=== PATIENT | male | born 1990 | race Caucasian/White ===

== ENCOUNTER 2023-01-20 08:28 | Outpatient (OUT) | payer BC, SELFPAY ==
[2023-01-20 08:50] LABS: Basophils Absolute Auto 0.1 10^3/uL (0.0-0.1); Basophils Percent Auto 0.8 % (0.2-2.0); Eosinophils Absolute Auto 0.3 10^3/uL (0.0-0.7); Eosinophils Percent Auto 3.1 % (0.9-7.0); Hematocrit 44.4 % (42.0-54.0); Hemoglobin 14.9 g/dL (14.0-18.0); Immature Granulocytes Abs Auto 0.06 10^3/uL (0.00-0.03); Immature Granulocytes Pct Auto 0.8 % (0.0-0.5); Lymphocytes Absolute Auto 2.3 10^3/uL (1.2-3.8); Lymphocytes Percent Auto 29.2 % (20.5-60.0); Mean Corpuscular HGB Conc 33.6 g/dL (29.9-35.2); Mean Corpuscular Hemoglobin 28.7 pg (25.9-34.0); Mean Corpuscular Volume 85.4 fL (80.0-94.0); Mean Platelet Volume 9.1 fL (9.5-13.5); Monocytes Absolute Auto 0.7 10^3/uL (0.3-0.8); Monocytes Percent Auto 8.2 % (1.7-12.0); Neutrophils Absolute Auto 4.6 10^3/uL (1.4-6.5); Neutrophils Percent Auto 57.9 % (43.0-75.0); Platelet Count 215 10^3/uL (150-450); Red Cell Distribution Width 12.7 % (11.0-15.0)
[2023-01-20 10:09] LABS: Alanine Aminotransferase 30 U/L (16-63); Albumin Globulin Ratio 0.9; Albumin Level 3.8 g/dL (3.4-5.0); Alkaline Phosphatase 84 U/L (46-116); Anion Gap 11.1; Aspartate Amino Transferase 20 U/L (15-37); Bilirubin Total 0.3 mg/dL (0.2-1.0); Calcium 9.2 mg/dL (8.5-10.1); Carbon Dioxide 29.1 mmol/L (21.0-32.0); Chloride 104 mmol/L (98-107); Chol HDL Ratio 4.6; Cholesterol 171 mg/dL (<=200); Estimated GFR (African America >60 (>=60); Estimated GFR (Non-African Ame >60 (>=60); Globulin 4.1 g/dL; Glucose 97 mg/dL (74-106); HDL Cholesterol 37 mg/dL (40-60); Potassium 4.2 mmol/L (3.5-5.1); Sodium 140 mmol/L (136-145); Thyroid Stimulating Hormone 2.621 uIU/mL (0.358-3.740); Total Protein 7.9 g/dL (6.4-8.2); Triglycerides 147 mg/dL (<=150); VLDL CHOLESTEROL 29.4 mg/dL
== END 2023-01-20 08:29 | disposition home or self-care (01) ==
LOC: LAB 08:34
PROVIDERS: PCP Family Medicine; Visit Provider Family Medicine
DX: Z00.00 Encounter for general adult medical examination without abnormal findings (principal)
CPT/HCPCS: 36415; 80053; 80061; 84443; 85025

== ENCOUNTER 2023-12-08 13:56 | Outpatient (OUT) | payer BC, SELFPAY ==
[2023-12-08 14:42] LABS: Chloride 104 mmol/L (98-107); Sodium 140 mmol/L (136-145)
[2023-12-08 14:43] LABS: Anion Gap 11.5; BUN Creatinine Ratio 11.7; Calcium 9.3 mg/dL (8.5-10.1); Carbon Dioxide 28.5 mmol/L (21.0-32.0); Estimated GFR (African America >60 (>=60); Estimated GFR (Non-African Ame >60 (>=60); Glucose 92 mg/dL (74-106); TSH W/ REFLEX FT4 2.107 uIU/mL (0.358-3.740)
== END 2023-12-08 13:57 | disposition home or self-care (01) ==
LOC: LAB 13:58
PROVIDERS: PCP Family Medicine; Visit Provider Family Medicine
DX: Z00.00 Encounter for general adult medical examination without abnormal findings (principal); N64.3 Galactorrhea not associated with childbirth
CPT/HCPCS: 36415; 80048; 84146; 84443

== ENCOUNTER 2024-01-19 11:08 | Outpatient (OUT) | payer BC, SELFPAY ==
--- OUTSIDE RECORDS SUMMARY | 2024-01-19 11:13 | XMS_ITS | CCD ---
Author Organization [facility] Care Team Providers Care Proofreader Name Role Phone DR CATARINA DOCTOR Admitting Unavailable DR VINAYAK ELMORE Attending Unavailable SADAF NATH Primary Care Physician [phone] MD Sadaf Nath Primary Care Provider MD Mart Man Attending Provider Sadaf Nath Unavailable Allergies Allergy Classification Reported Allergen(s) Allergy Type Date of Onset Reaction(s) Facility (15 sources) Amoxicillin; Translations: [amoxicillin] Drug Allergy [facility] (3 sources) Penicillins; Translations: [penicillins] Drug allergy [facility] (12 sources) tree nut, unspecified Drug allergy Anaphylaxis, Unknown [facility] (12 sources) Penicillin Drug Allergy hives [employer] Other (9 sources) Pseudoephedrine Drug Allergy Unknown [facility] [employer] Other (9 sources) Morphine Sulfate-NaCl Drug allergy Comment:Throat Swelling [facility] [employer] Other Medications Current Medications Medication Drug Class(es) Dates Sig (Normalized) Sig (Original) acetaminophen 325 mg / oxyCODONE hydrochloride 5 mg oral tablet (3 sources) Opioid Agonist Start: 12-05-2020 Percocet 5 mg-325 mg oral tablet 1 tab(s), Oral, q6hr as needed for pain, 18 tab(s), Refill(s) 0 Start Date: 12/05/20 Status: Ordered cephalexin 500 mg oral capsule (2 sources) Cephalosporin Antibacterial Start: 10-31-2021 End: 11-05-2021 take 1 capsule by mouth twice daily at mealtime Keflex 500 mg Cap 500 mg = 1 cap(s), Oral, BID, Start with first meal after procedure, X 5 day(s), # 10 cap(s), Refills(s) 0, [id number] 190, cm, 10/31/21 10:54:00 EDT, Height/Length Dosing, 148, kg, 10/31/21 10:54:00 EDT, Weight Dosing Start Date: 10/31/21 Stop Date: 11/05/21 Status: Ordered docusate sodium 100 mg oral capsule (3 sources) Start: 12-10-2020 take 1 capsule by mouth twice daily Colace 100 mg Cap 100 mg = 1 cap(s), Oral, BID, # 60 cap(s), Refills(s) 0, [id number], 183, cm, 12/10/20 7:06:00 EDT, Height/Length Dosing, 143.1, kg, 12/10/20 7:06:00 EDT, Weight Dosing Start Date: 12/10/20 Status: Ordered lisdexamfetamine dimesylate 50 mg oral capsule (11 sources) Central Nervous System Stimulant Start: 08-24-2023 take 1 capsule by mouth every twenty-four hours Vyvanse 50 MG 1 capsule in the morning Orally Once a day for 30 days Jul, Active Start: 07-23-2023 take 1 capsule by [facility] every twenty-four hours Vyvanse 50 MG 1 capsule in the morning Orally Once a day for 30 days Jun, Active Start: 05-29-2023 take 1 capsule by [facility] every twenty-four hours Vyvanse 50 MG 1 capsule in the morning Orally Once a day for 30 days May, Active Start: 05-21-2023 take 1 capsule by [facility] every twenty-four hours Vyvanse 50 MG 1 capsule in the morning Orally Once a day for 30 days Apr, Active Start: 04-27-2023 take 1 capsule by [facility] every twenty-four hours Vyvanse 50 MG 1 capsule in the morning Orally Once a day for 30 days Apr, Active Start: 03-04-2023 take 1 capsule by mo [facility] every twenty-four hours Vyvanse 50 MG 1 capsule in the morning Orally Once a day for 30 days Feb, Active Start: 02-03-2023 take 1 capsule by mo [facility] every twenty-four hours Vyvanse 30 MG 1 capsule in the morning Orally Once a day for 30 days Jan, Active methylPREDNISolone 4 mg oral tablet (1 source) Corticosteroid Start: 01-19-2023 methylPREDNISolone 4 MG as directed Orally for 6 days Dec, Active naproxen 500 mg oral tablet (3 sources) Nonsteroidal Anti-inflammatory Drug Start: 12-05-2020 take 1 tablet by mouth twice daily Naprosyn 500 mg Tab 500 mg = 1 tab(s), Oral, BID, # 20 tab(s), Refills(s) 0 Start Date: 12/05/20 Status: Ordered Osteo Bi-Flex Adv Joint Shield (12 sources) Osteo Bi-Flex Ad v Joint Shield Active Zofran ODT 8 mg Tab-Dis (3 sources) Start: 12-10-2020 take 1 tablet by mouth every six hours Zofran ODT 8 mg Tab-Dis 8 mg = 1 tab(s), Oral, q6hr, # 20 tab(s), Refills(s) 0, Pharmacy: [facility]/pharm[facility] #[id number], 183, cm, 12/10/20 7:06:00 EDT, Height/Length Dosing, 143.1, kg, 12/10/20 7:06:00 EDT, Weight Dosing Start Date: 12/10/20 Status: Ordered Problems Active Problems Problem Classification Problem Date Documented Date Episodic/Chronic Allergic reactions (14 sources) Allergy to tree nut; Translations: [Allergy to other foods] Episodic Attention-deficit, conduct, and disruptive behavior disorders (11 sources) Adult attention deficit hyperactivity disorder ; Translations: [Attention-deficit hyperactivity disorder, unspecified type] Chronic Attention-deficit, conduct, and disruptive behavior disorders (9 sources) Attention-deficit hyperactivity disorder, unspecified type Chronic Contraceptive and procreative management (6 sources) Sterilization requested; Translations: [Encounter for sterilization] Onset: 10-31-2021 Episodic Fracture of lower limb (3 sources) Fracture of ankle 12-07-2020 Episodic Other nutritional; endocrine; and metabolic disorders (8 sources) Body mass index 40+ - severely obese; Translations: [Body mass index (BMI) 40.0-44.9, adult] Chronic Other nutritional; endocrine; and metabolic disorders (1 source) Body mass index (BMI) 40.0-44.9, adult; Translations: [Body mass index (BMI) 40.0-44.9, adult] Chronic Unclassified (3 sources) Patient encounter status 10-10-2021 Past or Other Problems Problem Classification Problem Date Documented Date Episodic/Chronic Residual codes; unclassified (4 sources) Other specified postprocedural states; Translations: [OTH SPECIFIED POSTPROCEDURAL STATES] Onset: 02-05-2021 Episodic Results Test Name Value Interpretation Reference Range Facil ity Lab Reportson 02-03-2022 Lab Reports [id number] Normal [facility] Semen Analysis, Post Vasecto myon 01-25-2022 Semen Analysis, Post Vasectomy Few Nonmotile Sperm Normal None Seen [facility] Comment on above: Performed By: #### S EMPOST #### [address] Result Comment: PERF ORMED BY: [place] [address] PATHOLOGIST CORK INSULATOR TOO SLOAN M.D. Semen analysis post vasectom y panelOrdered By: Mart Man on 01-25-2022 Semen analysis p vasectomy panel (Merari) Few nonmotile sperm None Seen [facility] Ambulatory Visit Summaryon 0 11-18-2021 Ambulatory Visit Summary MELLO ARCHER SOREN :1990 Visit Date:11/18/2021 Ambulatory Visit Instructions Your Diagnosis Status post vasectomy Encounter for postvasectomy sperm count Your Care Team Attending Physician - JULIAN PIERRE, Mart Mcbride Primary Care Physician - SADAF NATH MD This Is Your Medications List Contact prescribing physician if questions or concerns acetaminophen-oxycodon e (Percocet 5 mg-325 mg oral tablet) docusate (Colace 100 mg Cap) naproxen (Naprosyn 500 mg Tab) ondansetron (Zofran ODT 8 mg Tab-Dis) Procedures Performed Vasectomy (10/31/2021), ORIF - Open reduction of fracture of ankle with internal fixation (12/10/2020), Tonsillectomy. Discharge Vitals Height 190 cm Height 190.0 cm Weight 148 kg Weight 148.0 kg BMI 41 What to do next You Need to Schedule the Following Appointments Follow Up with JULIAN PIERRE, RADHA Mckeon When: Only if needed Where: [address] [place], [place] [id number]- Medications What How Much When Why Instructions Unchanged acetaminophen-oxycodon e (Percocet 5 mg-325 mg oral tablet) 1 Tablets By Mouth Every 6 hours as needed for as needed for pain Bimalleolar fracture of right ankle Contact prescribing physician if questions or concerns Unchanged docusate (Colace 100 mg Cap) 1 Capsules By Mouth 2 times a day Contact prescribing physician if questions or concerns Unchanged naproxen (Naprosyn 500 mg Tab) 1 Tablets By Mouth 2 times a day Contact prescribing physician if questions or concerns Unchanged ondansetron (Zofran ODT 8 mg Tab-Dis) 1 Tablets By Mouth Every 6 hours Contact prescribing physician if questions or concerns Allergies Tree Nuts (Anaphylaxis) amoxicillin (Hives) penicillins (Hives) Problems Ongoing - Any problem that you are currently receiving treatment for. Encounter for vasectomy Status post vasectomy Vasectomy evaluation Education Materials Preventing HIV Infection and AIDS HIV (human immunodeficiency virus) infection is a long-term (chronic) viral infection. HIV kills white blood cells that help to control the body's defense (immune) system and fight infection. HIV spreads through semen, blood, breast milk, rectal fluid, and vaginal fluid. HIV is commonly spread through sexual contact and sharing needles or syringes, because these behaviors involve exchanging bodily fluids. Without treatment, HIV can turn into AIDS (acquired immunodeficiency syndrome), which is an advanced stage of HIV infection. AIDS is a very serious illness and can be life-threatening. What changes can I make to protect myself from HIV infection? Sexual contact To protect yourself from HIV through sexual contact: ? Use devices that prevent body fluids from passing between partners (barrier protection) every time you have sex. Barrier protection can be used during oral, vaginal, or anal sex. Commonly used barrier methods include: ? Male condom. ? Female condom. ? Dental dam. ? If you are at risk, ask your health care provider about taking medicine that can prevent HIV infection (pre-exposure prophylaxis, PrEP). ? Get tested for HIV and know the HIV status of your sexual partner(s). Avoid having sex with partners without a known HIV status. If you or your partner is HIV-positive, use protection during sex. ? Practice monogamy. This means you have only one sexual partner in your lifetime or only one partner at a time (serial monogamy). ? Get tested and treated for STIs (sexually transmitted infections). Having an STI increases your risk for getting HIV. The only way to completely prevent HIV from being spread through sexual contact is not to have any kind of sex (abstinence), including oral, vaginal, or anal sex. Drug use To protect yourself from HIV through drug use: ? Do not use drugs, especially drugs that are injected. ? Avoid having sex while under the influence of alcohol and drugs. Alcohol and drugs can affect your ability to make good decisions and may lead you to engage in high risk behaviors. ? Do not share needles or syringes with anyone else. If you do share needles or syringes, consider taking PrEP to prevent HIV infection. Blood and bodily fluid To protect yourself from HIV through exposure to blood and bodily fluids from a person who has HIV: ? Cover any sores or wounds on yourself or the person with HIV. ? If you need to touch blood or bodily fluids from an infected person, use gloves and wash your hands afterward. ? Do not share items that touch bodily fluids or blood, such as toothbrushes or razors. What can happen if I do not make these changes? If you do not make these changes: ? You put yourself at risk of getting HIV from an infected person. HIV is a serious, life-threatening illness that cannot be cured. Having HIV makes it easier to get sick and more difficult to get well. ? You can pass HIV on to others even if you don't know that you have it. An infecte (more content not included)... Normal [facility] Patient Educationon 11-18- 22 Patient Education Infectious Disease Preventing HIV Infection and AIDS HIV (human immunodeficiency virus) infection is a long-term (chronic) viral infection. HIV kills white blood cells that help to control the body's defense (immune) system and fight infection. HIV spreads through semen, blood, breast milk, rectal fluid, and vaginal fluid. HIV is commonly spread through sexual contact and sharing needles or syringes, because these behaviors involve exchanging bodily fluids. Without treatment, HIV can turn into AIDS (acquired immunodeficiency syndrome), which is an advanced stage of HIV infection. AIDS is a very serious illness and can be life-threatening. What changes can I make to protect myself from HIV infection? Sexual contact To protect yourself from HIV through sexual contact: ? Use devices that prevent body fluids from passing between partners (barrier protection) every time you have sex. Barrier protection can be used during oral, vaginal, or anal sex. Commonly used barrier methods include: ? Male condom. ? Female condom. ? Dental dam. ? If you are at risk, ask your health care provider about taking medicine that can prevent HIV infection (pre-exposure prophylaxis, PrEP). ? Get tested for HIV and know the HIV status of your sexual partner(s). Avoid having sex with partners without a known HIV status. If you or your partner is HIV-positive, use protection during sex. ? Practice monogamy. This means you have only one sexual partner in your lifetime or only one partner at a time (serial monogamy). ? Get tested and treated for STIs (sexually transmitted infections). Having an STI increases your risk for getting HIV. The only way to completely prevent HIV from being spread through sexual contact is not to have any kind of sex (abstinence), including oral, vaginal, or anal sex. Drug use To protect yourself from HIV through drug use: ? Do not use drugs, especially drugs that are injected. ? Avoid having sex while under the influence of alcohol and drugs. Alcohol and drugs can affect your ability to make good decisions and may lead you to engage in high risk behaviors. ? Do not share needles or syringes with anyone else. If you do share needles or syringes, consider taking PrEP to prevent HIV infection. Blood and bodily fluid To protect yourself from HIV through exposure to blood and bodily fluids from a person who has HIV: ? Cover any sores or wounds on yourself or the person with HIV. ? If you need to touch blood or bodily fluids from an infected person, use gloves and wash your hands afterward. ? Do not share items that touch bodily fluids or blood, such as toothbrushes or razors. What can happen if I do not make these changes? If you do not make these changes: ? You put yourself at risk of getting HIV from an infected person. HIV is a serious, life-threatening illness that cannot be cured. Having HIV makes it easier to get sick and more difficult to get well. ? You can pass HIV on to others even if you don't know that you have it. An infected mother can also pass it to her children through , childbirth, or . ? You expose yourself to complications from the virus. Without treatment, the virus progresses. As it multiplies in your body, it causes the immune system to stop protecting you from infections and other health problems. You may get infections that you would not normally get if your immune system was healthy and working properly (opportunistic diseases). ? You put yourself at risk of side effects from HIV medicines. HIV medicines (antiretroviral therapy, ART) can help slow the virus from progressing and prevent its spread to others. People with HIV must take these medicines on a daily basis in order to live long, healthy lives. However, these medicines have side effects. Long-term use of ART medicines can lead to chronic health conditions, such as damage to the liver and kidneys, diabetes, and heart disease. People who take HIV medicines must use protection during sex because they can still pass the virus on to sexual partners. ? You could also put yourself at high risk for getting other sexually transmitted infections. ? You put yourself at risk of having an unintended . Where to find support To get support preventing HIV infection and AIDS: ? Talk with your health care provider. ? Visit your local health department or clinic. ? Consider joining a support group. Where to find more information Learn more about HIV and AIDS from: ? U.S. Department of Health and Human Services: www.aids.gov ? Centers for Disease Control and Prevention: ? More information about preventing HIV: www.cdc.gov/hiv/basics /prevention.html ? How to find a location where you can get sexual health materials and treatment for free or for a low cost: gettested.cdc.gov Summary ? HIV spreads through semen, blood, breast milk, rectal fluid, and vaginal fluid. ? HIV is commonly spread through sexual contact and sharing needles or (more content not included)... [facility] Urology Office/Clinic Noteon 11-18-2021 Urology Office/Clinic Note Chief Complaint PO Vasectomy HPI Staff This is a 30 year old male PO Vasectomy done 10/31/21. Pain with urination:No Blood in urine:No Incomplete bladder emptying:No Frequency:No Urgency:No Nocturia:No Hesitancy:No Urination requires straining:No Stream:No Stream starts and stops:No Post-void dribbling:No Leaking before getting to the restroom:_ Urinary incontinence without sensory awareness:_ Temporarily unable to restrain urination with body movement:_ Male genital symptoms penile:No Male genital symptoms testicular:No Male genital symptoms scrotal:No Blood in semen No History of Present Illness I have reviewed and verified the staff HPI to be accurate for this encounter. Review of Systems ROS - Provider Constitutional: denies weight loss, denies hot flashes. Eyes: denies eye problems. Gastrointestinal: denies nausea, denies vomiting. Cardiovascular: denies chest pain or angina. Integumentary: no dryness Musculoskeletal: denies musculoskeletal symptoms. ENMT: denies otolaryngeal symptoms. Respiratory: no shortness of breath. Heme/Lymph: denies easy bleeding tendency, denies easy bruising tendency. Psychiatric: no confusion, no anxiety. Genitourinary: denies dysuria, denies hematuria, denies discharge, denies urinary frequency, denies urinary hesitancy, denies nocturia, denies incontinence, denies genital sores, denies decreased libido, and denies erectile dysfunction. Physical Exam Vitals & Measurements HT: 190 cm HT: 190.0 cm WT: 148 kg WT: 148.0 kg BMI: 41 General Appearance: alert, no distress, well nourished, well developed male. Genitourinary: normal scrotum, normal testes, normal urethra, normal epididymis, normal vas deferens/spermatic cord. Flank Pain: none. Bladder: nonpalpable. Assessment/Plan 1. Status post vasectomy (Z98.52: Vasectomy status) PO Vasectomy done 10/31/21. He is aware that he is not sterile until he has a negative semen analysis which will be checked after about two months and after 20-30 ejaculations. He should deliver the semen specimen to the lab within 30 min. of ejaculation and he will call one week later to get the results. 2. Encounter for postvasectomy sperm count (Z30.8: Encounter for other contraceptive management) Explained to pt how to take and drop off a semen sample. Pt is not sterile til he gets a negative semen sample. Patient is postop vasectomy 2 weeks ago. And no problems or complications I took all sutures out bilaterally. Superficial pus like area in one of the sutures I told the dab with peroxide 3 times a day. Patient's not sterile I said for 2 months I will get a single sperm count it should be 0 all precautions will be taken until I get the 0 sperm count and the patient understands this. Follow-up With When Contact Information JULIAN PIERRE, Mart Mcbride, URL Only if needed [address] [place] [phone]- Additional Instructions: Patient Education Preventing HIV Infection and AIDS Ramo Gomez personally scribed for Dr. Man on 11/18/2021 10:31:56. . Documentation recorded by the scribeRamo, accurately reflects the services(s) I performed and decisions made by me. Authenticated by Dr. Man on 11/18/2021 10:46:59. Problem List/Past Medical History Ongoing Encounter for vasectomy Status post vasectomy Vasectomy evaluation Historical No qualifying data Procedure/Surgical History Vasectomy (10/31/2021), ORIF - Open reduction of fracture of ankle with internal fixation (12/10/2020), Tonsillectomy. Medications Colace 100 mg Cap, 100 mg= 1 cap(s), Oral, BID, Not taking Naprosyn 500 mg Tab, 500 mg= 1 tab(s), Oral, BID, Not taking Percocet 5 mg-325 mg oral tablet, 1 tab(s), Oral, q6hr, PRN, Not taking Zofran ODT 8 mg Tab-Dis, 8 mg= 1 tab(s), Oral, q6hr, Not taking Allergies Tree Nuts (Anaphylaxis) amoxicillin (Hives) penicillins (Hives) Social History Alcohol - Denies Alcohol Use, 12/07/2020 Substance Abuse - Denies Substance Abuse, 12/07/2020 Tobacco - Denies Tobacco Use, 12/07/2020 Family History Family history is unknown Immunizations Vaccine Date Status SARS-CoV-2 (COVID-19) Ad26 vaccine 11/25/2020 Recorded Diagnostic Results Tests Reviewed: Reviewed [facility]A. [facility] Comment on above: Result Comment: Elec tronically Signed By: Mart MAN MD\.br\Date and Time Signed: 11/18/21 10:47 EDT\.br\Electronically Co-Signed By: Ramo Yap\.br\Date and Time Co-Signed: 11/18/21 10:33 EDT Coding Summary.on 11-07-2021 Coding Summary. [id number] Gh 0bWw+PGhlYWQ+LI5DVHEaT 09jsDRbbU0BH4lETD1ENVS VFXBXBH8LYQ4ylKL3OEfgB 2VybiAv QenjnYJnTB80CYy0FSY6mY vyVAojjQ0fgRXhN2f7ZaZv IA87vB18NIxvCCOeCvC7Nw ZpbjsgbWFy O3knYzNmuXBgZmg+PHRhYm xlIHdpZHRoPScxMDAlJyBz lZolAU3xKn6oZMIwTKItoF xhcHNlOiBj m8rwPMLhFUhfAU3doWuhR2 DnjPM9BRIue1l6Ah26uOR+ QUJdJJC4mNjqJTqqi140Sf Evf1pbEQU4 mQZxDUojKLL0I97yu3X9YJ WaNHNqZNC8dBH2iD9zhBwn xrcxN2NfxDIrOmT6VBA1oL PjsC2mhXeb tfibzW4yNkx+C93EUX5FSE SBSQ3ZRzm4J3LbHbazvFM+ GD83WWPcQX31zMJnwZAgs8 sakLb6GuCx TJCmGKQ5cVheHBbxz2ZnJF GmW75yrGZdy3O0BCYnzMjc rDFeMeTvdPQ8qD9wOWakzb hxe3trfezm Ffygb6zymw95dA99O74rDI lzLXCyMZM5QAZyRPHerAjv ut7ksG6nJl1+XUxiw5vdp2 gjuHe7FzDu QOHricZnwXrmUIJ7p3ZlUq 17P2SpoIheb5JoLkq8ey25 oHLax1H5jTJ6PEbtRBWbbJ 1eSNcaTiH9 UNZnNiXzvH39aYOsWQwmHm 2qxHxwqBbpAM1nCHHqnmlo LHEmnJ1qRKAwwIWrcUnmNG 4wNTBpbjtm x114KoFtJUW8ZWLsdISsI5 QtkF3uGiDrMVEcEENvY2Tq nAMrZQlaR999KHzjEfN1MH McscLsU0Si IMRogPttEgW4m2D8Iw0Wr7 DndofrBJR9VUfsLHT6JaJ7 NhMxYqN3G9NxJwx3TTUkoB zrZN8jS7Qm AQUwugahjbjfzAQ8HZZgWO GvbH23xCVnSIazZk9ji8B9 q274HUNzLDEflG07Yf6hwP ogMTBwdCBU bC0mfteto5rjwcxiUcKbVV AsKQw5WAq7HKZhcJviUdXk YBH8PpV2VPH4wHJbsQ2mjT imnanagL4i Oyc+J83rfO6dCIB6ENN3cs uiUUDvetRjQT99PD30O9Fv PjwvdGFibGU+PGRpdiBzdH hxNC0oAaIz x6ouk2TvVIghO9IkYVKbCW yqNld1CLRkYGJ7bCT7dQ0f GBYyNAyxu7R1kMY8P5Ilrk Lujs4nf6vu GVKoRQkrP44qoSQbt7T9JY OlkBH3NIIkoIqmBqRrxV94 Oyc+CEKncTdtx4BqZhrjx3 jve5upwIg3 NnGbNDRdciBohLtoHRB8y2 XbAt81U89uQClrQZJcMBDb TPCiKAWlnMzudk9dwM8tYg 8+PGNvbCB3 cXJ1sG3vFLZwLoN5OObqZ5 33ExJqbOWhXmdaq7zpd5yx zJv2IoKgRKAdmnCumTvrFT N3q5NqQe62 U41sGHwzHZMzMDUhGJXsTS OkfJbvtx5diF2qKt2+PC9j s7xmpc55yA98fOB+PHRkIH F7bRudKWnd CDIhjH9qXUfjUvC7MPJzLm IabX51aGScHZauQw2kzAwv nByjTN2mIWGtnslgv246Rv Gwr0byIWGa fVInQDwkJET1Y68lb2E4MO LwLGQmDST5sEB0yX3nsChy bjogbGVmdDsgdmVydGljYW hxLQodN796 IHRvcDsnPlBhdGllbnQgTm PaYIu9B0PySvb0DVKqaSgd DT6jvDJlOKhpRw5gbWjxeE xlMY2nUPTi tklnn336OzInt3gzDCRdvX ZrEFtkHRE4V10qq6N0HELu QFHjPOQ3pJP9aE5xpHqumc ogbGVmdDsg mtGbyDawNNkkQZkmU566CZ RvcDsnPkJpcnRoIERhdGU6 WR27MM20rJUyl6I2mRJ9Z8 BhZGRpbmct zvgenDT2WXVpOOJqpA76Am 0gfYtuZj5vVGWvYKL8HOIe vZAzQ8OweN8iJhAdVVExAU FcD2PdhHCt OUfiF308EOnlUpE8SXGxiz LeY0FhKASzjHprTpG6i5G2 Py5LT4D8NQ50KQ09mQYah3 K8jSM6E0Nv EVZeaeznbzyhwXP7OJGySK OzmD72Tg8olVjjLw6bFJIv RYC5GSBpoVJbR7TqcW0yBp AjMDAwMDAw D3BjxQRySDwaW581NWtmXd U4FZWtweLwW5WmRHEfsLxg EiE9x6X8Vi6TPHw3FU75GB 84mWTmo5Q9 uPY0O3QrHRWmpsdadlgktR A8AGJwIFKnlH04Oh7lsAob Uy3hILTaOXN5ENTdhXKzO2 JvoM0nMdQo BLJkSBIpH0WrwJRnXSniT6 65BWztTrO5TFRqesByL6My WSWxdNqvYlI7e4H7Df0VKP GtPQ20VVW4 dUJ2OQ83LX62T7NgXbdkiU FibGU+PHRhYmxlIHdpZHRo HNnhKOFkJxHkbUehIM1jBh 9yZGVyLWNv rUllaZYwQgFji6uuKTCgSE ygKA1anFnjG3TviCN6BIOo s3k3No02H40mQ1LkcIZ+PG KxmUP8zEC6 pP3qDyJpNxD7CDesN226Bu DptNYmHfpib3zih6brnZf7 GbB4LIBndnHlgZwaSQH3f6 CnRd92W41u IHdpZHRoPSIxNSUiIHZhbG rwwi7ucT6xOh1+PGNvbCB3 tRE7dO9tVsStDiS5YTpwV9 49InRvcCIv Okdlp2smr6qpqEd9ZaRiWB NmsqBweTydCEL8k2UvNu91 D5BcjIplz3HaTlj5fs74tA Upg2S9uTZ9 S7DnVRBxwwoioKRqsUanUI 2zIRWgssvmEXClqO8zFMBg B2z2YoWcPrF6DTkqS1Aeib N1KQVfhFXa GUluMSW5B24dt3D6ZEEsFU ZmQMI6sGB6jA9ajAkgnsmd bGVmdDsgdmVydGljYWwtYW qkL035DKHb uBxlJVQejG7kNYIqjJWufH zaLE6wWCBzznihOmEBGSED XJXCN0zNUdXCAZ8JOylkzR Q+PHRkIHN0 aYtgJBahAHDinG9rUXAoP8 e2HgGdIzS8FXobL2VeUDKj dozdCr51bF6cBrEgOjD3WK uzO2KvpbV3 ZZOuiREcSYewTNY5N26ft3 W4LFOsCJVdARS2nQV8iP7m bGlnbjogbGVmdDsgdmVydG ljYWwtYWxp V189IIWecYgtGdO9VnI3Bh P6DYX9L1YkPpc8KALidBmf UC0prBIbPBhuGj6dhDtsnH ziWM9hVTMe fjfdPGIdqY3vQKEahVAbfR dyKV5hFKLbnzihf803WuVe MIQ3MUEitZVqI5JifD7eWz AjMDAwMDAw L8OqlRZfSLlxV014GLgbFw J8PKZfraZjL1EkDHZsiDaz WpB5i8V3Zq6bROJYTYQevs wvdGQ+PHRk MQW2mPoeLMvrXCYaoJ3cYU HfP5w6JcGtCiL8DNeqJ6Xd MWHeitrjRv97rL7pYvTnRz V7HTlrX3Gs scL2SMVzqUOaCFzdDPI7B8 6bk2U2SGCcNSStXQG5gSM2 dX5swUwilchrxVFhgNhutl VydGljYWwt GHgdL227PBDkjXkkOz9naA T5I3TlGml7DEYerJdaXY5d nJKhSYyyPh4moXspxAbsRP 4wNTBpbjtw NOVouS6aYSCxqEGtjZosGO 4bICXhicyzd829GfStKYJ5 BFSlfDWrD4YtwR5gBkBvJB XnATJvC1Tp mMEyROyvA314OKtsAwN9LH TtvdQdO7YgDDNriNchShH4 v1E8Gg0WPOFwENNuvXNzNt C5G3BuDiyf dHI+IM10BLZhAU08uPAaoK Rvc7lelAk9AnTgHAKaGAJ1 xMdeCXhla2BhNNMuR15qaA Myn4F1GTMx nDbmsKEyDkYxlXP9aB0iTC rjzeauw1ecccjjZwnge2vj dt02aF43L31pPQaqUAPkTX IzMCUiIHZh yFmnhh8kcF3dTk4+PGNvbC T0yPW9lD6xSpAbTzH6JGll T862AqYqfPItEeoup3ktk4 twfBk1HsFk LEMradZzrUwvCPJ1t4FdKu 61J46uLIhdKPKrDXYpGORg FEJbeUifoq3tmT6aId7+PC 2xa1asiy83 bO73iYN+JIYfSWL3vRcxRO ubNZPvlD5hPLycElS4IXWb NuKqbI55rNZoSIguKb5miK lseDbuHW9v GGYjemnvc997VjCcp0ngCU PytYNwAMajDQI5R94ro3J4 PGZmNMWgKAS2uUG9wR9fsV lnbjogbGVm dDsgdmVydGljYWwtYWxpZ2 83MRDhaNxiLpLbeKFeX9lh klDWNQ6oHmtulCR+PHRkIH X9zGmyWNvc ICFnoO4jDEKlP4n6XgXqMt C1ZTioD5XkveG8JXOhnPWk HVGkhGIIcL4vythla6pjbs ogIzAwMDAw JKm6FUr8THTwgSiwGnBbDC H5SjB7BEE3zPWvlH5yhCur ravtnE2cCpc+RklOOjwvdG Q+PHRkIHN0 nVqyXCwpXYBbfX3wKQLkA8 t4JuScYgW4QAwjJ7VfcaV7 KRLzgJAsTZNhtWJJoB8yfz lss8ilkxzn VcKsMKXcTEz6BGn8PBKvwE mzFxJgMEE6UoU1GQF4dKXf mI1jkErscgbjmF4oUrj+TV JOOjwvdGQ+ OYByKNC7iAlyCArcZQOjwI 9qTRPrR8r2QwDkKuE0MBvo G6NyydY2UVIkjDFpBXPpaH ZYeG9nmcop y9tewfoxGxYpJXXmTAu8FV j2VICygNicBsLgWOH8FvQ2 YFE7nNIlcH2taBbiinjeoM 9wOyc+UGF5 JMM3VL26WD33G5QmVoepdC FibGU+PHRhYmxlIHdpZHRo EGlbMLVtLnSexMcpEM4fMl 9yZGVyLWNv bGxh (more content not included)... Normal [facility] Consent for Procedure/Surger yon 11-01-2021 Consent for Procedure/Surgery [id number]:127 Normal [facility] Patient Educationon 11-01-19 22 Patient Education Urology Vasectomy, Care After This sheet gives you information about how to care for yourself after your procedure. Your health care provider may also give you more specific instructions. If you have problems or questions, contact your health care provider. What can I expect after the procedure? After your procedure, it is common to have: ? Mild pain, swelling, redness, or discomfort in your scrotum. ? Some blood coming from your incisions or puncture sites for one or two days. ? Blood in your semen. Follow these instructions at home: Medicines ? Take kxio-byb-pbwlrpp and prescription medicines only as told by your health care provider. ? Avoid taking NSAIDs such as aspirin and ibuprofen, because these medicines can make bleeding worse. Activity ? For the first 2 days after surgery, avoid physical activity and exercise that require a lot of energy. Ask your health care provider what activities are safe for you. ? Do not participate in sports or perform heavy physical labor until your pain has improved, or until your health care provider says it is okay. ? Do not ejaculate for at least 1 week after the procedure, or as long as directed. ? You may resume sexual activity 7?10 days after your procedure, or when your health care provider approves. Use a different method of control (contraception) until you have had test results that confirm that there is no sperm in your semen. Scrotal support ? Use scrotal support, such as a jock strap or underwear with a supportive pouch, as needed for one week after your procedure. ? If you feel discomfort in your scrotum, you may remove the scrotal support to see if the discomfort is relieved. Sometimes scrotal support can press on the scrotum and cause or worsen discomfort. ? If your skin gets irritated, you may add some germ-free (sterile), fluffed bandages or a clean washcloth to the scrotal support. General instructions ? Put ice on the injured area: ? Put ice in a plastic bag. ? Place a towel between your skin and the bag. ? Leave the ice on for 20 minutes, 2?3 times a day. ? Check your incisions or puncture sites every day for signs of infection. Check for: ? Redness, swelling, or pain. ? Fluid or blood. ? Warmth. ? Pus or a bad smell. ? Leave stitches (sutures) in place. The sutures will dissolve on their own and do not need to be removed. ? Keep all follow-up visits as told by your health care provider. This is important because you will need a test to confirm that there is no sperm in your semen. Multiple ejaculations are needed to clear out sperm that were beyond the vasectomy site. You will need one test result showing that there is no sperm in your semen before you can resume unprotected sex. This may take 2?4 months after your procedure. ? Do not drive for 24 hours if you were given a sedative to help you relax. Contact a health care provider if: ? You have redness, swelling, or more pain around your incision or puncture site, or in your scrotum area in general. ? You have bleeding from your incision or puncture site. ? You have pus or a bad smell coming from your incision or puncture site. ? You have a fever. ? Your incision or puncture site opens up. Get help right away if: ? You develop a rash. ? You have difficulty breathing. Summary ? After your procedure it is common to have mild pain, swelling, redness, or discomfort in your scrotum. ? Avoid physical activity and exercise that requires a lot of energy for the first 2 days after surgery. ? Put ice on the injured area. Leave the ice on for 20 minutes, 2?3 times a day. ? Do not drive for 24 hours if you were given a sedative to help you relax. This information is not intended to replace advice given to you by your health care provider. Make sure you discuss any questions you have with your health care provider. Document Released: 01/30/2006 Document Revised: 06/25/2018 Document Reviewed: 10/09/2017 [employer] Patient Education ? 2019 [employer]. [facility] Urology Office/Clinic Noteon 10-31-2021 Urology Office/Clinic Note Chief Complaint Vasectomy HPI Staff Vasectomy History of Present Illness I have reviewed and verified the staff HPI to be accurate for this encounter. Review of Systems PHQ Score Initial Depression Screen Score: 0 ROS - Provider Constitutional: denies weight loss, denies hot flashes. Eyes: denies eye problems. Gastrointestinal: denies nausea, denies vomiting. Cardiovascular: denies chest pain or angina. Integumentary: no dryness Musculoskeletal: denies musculoskeletal symptoms. ENMT: denies otolaryngeal symptoms. Respiratory: no shortness of breath. Heme/Lymph: denies easy bleeding tendency, denies easy bruising tendency. Psychiatric: no confusion, no anxiety. Genitourinary: denies dysuria, denies hematuria, denies discharge, denies urinary frequency, denies urinary hesitancy, denies nocturia, denies incontinence, denies genital sores, denies decreased libido, and denies erectile dysfunction. Physical Exam Vitals & Measurements HR: 75(Peripheral) BP: 142/93 HT: 190 cm HT: 190.0 cm WT: 148 kg WT: 148.0 kg BMI: 41 General Appearance: alert, no distress, well nourished, well developed male. Genitourinary: normal scrotum, normal testes, normal urethra, normal epididymis, normal vas deferens/spermatic cord. Flank Pain: none. Bladder: nonpalpable. Procedure Operative Information Anesthesia Type: Local Procedure: Bilateral Segmental Vasectomy Complications: None Surgical risks, benefits, details of the procedure have been explained to the patient. Full informed consent has been obtained. Intraoperative Information The patient is brought back to the operating room and placed in the supine position. He is prepped appropriately and draped. The skin and vas deferens are then anesthetized and the incision is made and carried down through the scrotal skin down to the level of the vas deferens which has been isolated. The bilateral segmental vasectomy is performed and the proximal and distal ends are ligated, isolated from each other, and allowed to fall back into the scrotal incision. The skin is then closed with interrupted sutures after hemostasis is achieved with electrocautery. Postoperative Information He tolerated the procedure well and is subsequently discharged home on oral antibiotics and with the discharge instructions. Assessment/Plan 1. Encounter for vasectomy (Z30.2: Encounter for sterilization) Pt is not having any urinary issues at this time. Pt is here for a Vasectomy. This patient was placed in the supine position prepped with a Betadine soap Betadine prep solution draped appropriately. Left vas identified in the left hemiscrotum. 2% lidocaine with was used for intradermal anesthesia and a small incision directly over the left vas. It was stripped of its adventitial layer and a 1 cm portion removed. Proximal distal portion suture-ligated with 2-0 Vicryl x2 both ends cauterized the left hemiscrotum. Double layer closure with 4-0 Vicryl. Vertical mattress sutures of 4-0 Vicryl for skin. Exact similar procedure was carried out on the opposite right vas. Light pressure dressing applied with appropriate instructions given. Patient was discharged on Keflex 500 4 times daily for a week Motrin or Aleve as needed with the appropriate ice packs. See the patient in 2 weeks or as needed Follow-up With When Contact Information JULIAN PIERRE, Mart Mcbride, [address] [place] [address]- [phone] Additional Instructions: Patient Education Vasectomy, Care After IRafaela_, personally scribed for Dr. Man on 10/31/2021 11:28:34. . Documentation recorded by the Sarah islasy Rife, accurately reflects the services(s) I performed and decisions made by me. Authenticated by Dr. Man on 10/31/2021 12:06:15. Problem List/Past Medical History Ongoing Encounter for vasectomy Vasectomy evaluation Historical No qualifying data Procedure/Surgical History Vasectomy (10/31/2021), ORIF - Open reduction of fracture of ankle with internal fixation (12/10/2020), Tonsillectomy. Medications Colace 100 mg Cap, 100 mg= 1 cap(s), Oral, BID, Not taking Naprosyn 500 mg Tab, 500 mg= 1 tab(s), Oral, BID, Not taking Percocet 5 mg-325 mg oral tablet, 1 tab(s), Oral, q6hr, PRN, Not taking Zofran ODT 8 mg Tab-Dis, 8 mg= 1 tab(s), Oral, q6hr, Not taking Allergies Tree Nuts (Anaphylaxis) amoxicillin (Hives) penicillins (Hives) Social History Alcohol - Denies Alcohol Use, 12/07/2020 Substance Abuse - Denies Substance Abuse, 12/07/2020 Tobacco - Denies Tobacco Use, 12/07/2020 Family History Family history is unknown Immunizations Vaccine Date Status SARS-CoV-2 (COVID-19) Ad26 vaccine 11/25/2020 Recorded Normal [facility] Comment on above: Result Comment: Elec tronically Signed By: Mart MAN MD\.br\Date and Time Signed: 10/31/21 12:06 EDT\.br\Electronically Co-Signed By: Rafaela Madrigal MA\.br\Date and Time Co-Signed: 10/31/21 11:29 EDT Pre-Authorization for Medica l Treatmenton 10-15-2021 Pre-Authorization for Medical Treatment [id number] 0CD:127 Normal [facility] Ambulatory Visit Summaryon 0 10-10-2021 Ambulatory Visit Summary MELLO ARCHER :1990 Visit Date:10/10/2021 Ambulatory Visit Instructions Your Diagnosis Vasectomy evaluation Your Care Team Attending Physician - Mart MAN MD Primary Care Physician - Triston Walters MD Referring Physician - SADAF NATH MD This Is Your Medications List Contact prescribing physician if questions or concerns Turmeric (turmeric 500 mg oral capsule) acetaminophen-oxycodon e (Percocet 5 mg-325 mg oral tablet) docusate (Colace 100 mg Cap) docusate (Colace 100 mg Cap) naproxen (Naprosyn 500 mg Tab) ondansetron (Zofran ODT 8 mg Tab-Dis) Procedures Performed ORIF - Open reduction of fracture of ankle with internal fixation (12/10/2020), Tonsillectomy. Discharge Vitals Heart Rate (Peripheral) 72 Blood Pressure 137/85 Height 190 cm Height 190.0 cm Weight 148 kg Weight 148.0 kg BMI 41 What to do next You Need to Schedule the Following Appointments Follow Up with JULIAN PIERRE, RADHA Mckeon When: Why: schedule vasectomy Where: [address] [place] [id number] Medications What How Much When Why Instructions Unchanged acetaminophen-oxycodon e (Percocet 5 mg-325 mg oral tablet) 1 Tablets By Mouth Every 6 hours as needed for as needed for pain Bimalleolar fracture of right ankle Contact prescribing physician if questions or concerns Unchanged docusate (Colace 100 mg Cap) 1 Capsules By Mouth Every day as needed for for constipation Contact prescribing physician if questions or concerns Unchanged docusate (Colace 100 mg Cap) 1 Capsules By Mouth 2 times a day Contact prescribing physician if questions or concerns Unchanged naproxen (Naprosyn 500 mg Tab) 1 Tablets By Mouth 2 times a day Contact prescribing physician if questions or concerns Unchanged ondansetron (Zofran ODT 8 mg Tab-Dis) 1 Tablets By Mouth Every 6 hours Contact prescribing physician if questions or concerns Unchanged Turmeric (turmeric 500 mg oral capsule) 2 Capsules By Mouth Every day Contact prescribing physician if questions or concerns Allergies Tree Nuts (Anaphylaxis) amoxicillin (Hives) penicillins (Hives) Problems Ongoing - Any problem that you are currently receiving treatment for. Vasectomy evaluation Education Materials Vasectomy, Care After This sheet gives you information about how to care for yourself after your procedure. Your health care provider may also give you more specific instructions. If you have problems or questions, contact your health care provider. What can I expect after the procedure? After your procedure, it is common to have: ? Mild pain, swelling, redness, or discomfort in your scrotum. ? Some blood coming from your incisions or puncture sites for one or two days. ? Blood in your semen. Follow these instructions at home: Medicines ? Take pfwk-oqn-dviwocp and prescription medicines only as told by your health care provider. ? Avoid taking NSAIDs such as aspirin and ibuprofen, because these medicines can make bleeding worse. Activity ? For the first 2 days after surgery, avoid physical activity and exercise that require a lot of energy. Ask your health care provider what activities are safe for you. ? Do not participate in sports or perform heavy physical labor until your pain has improved, or until your health care provider says it is okay. ? Do not ejaculate for at least 1 week after the procedure, or as long as directed. ? You may resume sexual activity 7?10 days after your procedure, or when your health care provider approves. Use a different method of control (contraception) until you have had test results that confirm that there is no sperm in your semen. Scrotal support ? Use scrotal support, such as a jock strap or underwear with a supportive pouch, as needed for one week after your procedure. ? If you feel discomfort in your scrotum, you may remove the scrotal support to see if the discomfort is relieved. Sometimes scrotal support can press on the scrotum and cause or worsen discomfort. ? If your skin gets irritated, you may add some germ-free (sterile), fluffed bandages or a clean washcloth to the scrotal support. General instructions ? Put ice on the injured area: ? Put ice in a plastic bag. ? Place a towel between your skin and the bag. ? Leave the ice on for 20 minutes, 2?3 times a day. ? Check your incisions or puncture sites every day for signs of infection. Check for: ? Redness, swelling, or pain. ? Fluid or blood. ? Warmth. ? Pus or a bad smell. ? Leave stitches (sutures) in place. The sutures will dissolve on their own and do not need to be removed. ? Keep all follow-up visits as told by your health care provider. This is important because you will need a test to confirm that there is no sperm in your semen. Multiple ejaculations are needed to clear out sperm that we (more content not included)... Normal [facility] Patient Educationon 10-11-19 Patient Education Urology Vasectomy, Care After This sheet gives you information about how to care for yourself after your procedure. Your health care provider may also give you more specific instructions. If you have problems or questions, contact your health care provider. What can I expect after the procedure? After your procedure, it is common to have: ? Mild pain, swelling, redness, or discomfort in your scrotum. ? Some blood coming from your incisions or puncture sites for one or two days. ? Blood in your semen. Follow these instructions at home: Medicines ? Take noap-jzk-upuzyxp and prescription medicines only as told by your health care provider. ? Avoid taking NSAIDs such as aspirin and ibuprofen, because these medicines can make bleeding worse. Activity ? For the first 2 days after surgery, avoid physical activity and exercise that require a lot of energy. Ask your health care provider what activities are safe for you. ? Do not participate in sports or perform heavy physical labor until your pain has improved, or until your health care provider says it is okay. ? Do not ejaculate for at least 1 week after the procedure, or as long as directed. ? You may resume sexual activity 7?10 days after your procedure, or when your health care provider approves. Use a different method of control (contraception) until you have had test results that confirm that there is no sperm in your semen. Scrotal support ? Use scrotal support, such as a jock strap or underwear with a supportive pouch, as needed for one week after your procedure. ? If you feel discomfort in your scrotum, you may remove the scrotal support to see if the discomfort is relieved. Sometimes scrotal support can press on the scrotum and cause or worsen discomfort. ? If your skin gets irritated, you may add some germ-free (sterile), fluffed bandages or a clean washcloth to the scrotal support. General instructions ? Put ice on the injured area: ? Put ice in a plastic bag. ? Place a towel between your skin and the bag. ? Leave the ice on for 20 minutes, 2?3 times a day. ? Check your incisions or puncture sites every day for signs of infection. Check for: ? Redness, swelling, or pain. ? Fluid or blood. ? Warmth. ? Pus or a bad smell. ? Leave stitches (sutures) in place. The sutures will dissolve on their own and do not need to be removed. ? Keep all follow-up visits as told by your health care provider. This is important because you will need a test to confirm that there is no sperm in your semen. Multiple ejaculations are needed to clear out sperm that were beyond the vasectomy site. You will need one test result showing that there is no sperm in your semen before you can resume unprotected sex. This may take 2?4 months after your procedure. ? Do not drive for 24 hours if you were given a sedative to help you relax. Contact a health care provider if: ? You have redness, swelling, or more pain around your incision or puncture site, or in your scrotum area in general. ? You have bleeding from your incision or puncture site. ? You have pus or a bad smell coming from your incision or puncture site. ? You have a fever. ? Your incision or puncture site opens up. Get help right away if: ? You develop a rash. ? You have difficulty breathing. Summary ? After your procedure it is common to have mild pain, swelling, redness, or discomfort in your scrotum. ? Avoid physical activity and exercise that requires a lot of energy for the first 2 days after surgery. ? Put ice on the injured area. Leave the ice on for 20 minutes, 2?3 times a day. ? Do not drive for 24 hours if you were given a sedative to help you relax. This information is not intended to replace advice given to you by your health care provider. Make sure you discuss any questions you have with your health care provider. Document Released: 01/30/2006 Document Revised: 06/25/2018 Document Reviewed: 10/09/2017 [employer] Patient Education ? 2019 [employer]. [facility] Qing 08-26-2020 CNOV Office Visit (ANDRBE ) MELLO ARCHER ([id number]) 1990 M Date Time Provider Department 08/26/20 8:00 AM ANDROLOGY [facility]ACHINE [facility] CELLOPHANERSAVANNAH JEAN BAPTISTE During your visit today, we recorded the following information about you: Savannah Marte Tech 08/26/2020 9:36 AM Signed Semen wash for IUI. Savannah Marte Referring Provider: SELF [[id number]] Allergies As of Date: 08/26/2020 (Not on File) Date Reviewed: Never Reviewed Primary Visit Diagnosis:Procreative management [Z31.9] Problem List As Of Date: 08/26/2020 (None) Encounter Status:Closed by AWAIS OCONNOR on 08/26/20 Normal [facility] Vital Signs Date Time Vital Sign Value Performing Clinician Facility 03-09-2023 10:15-0400 Body height 185.42 cm Sadaf Nath Other [facility] Other 03-09-2023 10:15-0400 Body mass index (BMI) [Ratio] 42.48 kg/m2 Sadaf Nath Other [facility] Other 03-09-2023 10:15-0400 Body weight 146.06 kg Sadaf Nath Other [facility] Other 03-09-2023 10:15-0400 Diastolic blood pressure 89 mm[Hg] Sadaf Nath Other [facility] Other 03-09-2023 10:15-0400 Systolic blood pressure 136 mm[Hg] Sadaf Nath Other [facility] Other 02-03-2023 11:30-0400 Body height 185.42 cm Sadaf Nath Other [facility] Other 02-03-2023 11:30-0400 Body mass index (BMI) [Ratio] 42.87 kg/m2 Sadaf Nath Other [facility] Other 02-03-2023 11:30-0400 Body weight 147.42 kg Sadaf Nath Other [facility] Other 02-03-2023 11:30-0400 Diastolic blood pressure 86 mm[Hg] Sadaf Nath Other [facility] Other 02-03-2023 11:30-0400 Systolic blood pressure 119 mm[Hg] Sadaf Nath Other [facility] Other 01-19-2023 13:00-0400 Body height 185.42 cm Sadaf Nath Other [facility] Other 01-19-2023 13:00-0400 Body mass index (BMI) [Ratio] 42.87 kg/m2 Sadaf Nath Other [facility] Other 01-19-2023 13:00-0400 Body weight 147.42 kg Sadaf Nath Other [facility] Other 01-19-2023 13:00-0400 Diastolic blood pressure 93 mm[Hg] Sadaf Nath Other [facility] Other 01-19-2023 13:00-0400 Systolic blood pressure 141 mm[Hg] Sadaf Nath Other [facility] Other 10-31-2021 10:42-0400 Blood Pressure Location Mart RICE [facility] [place] 10-31-2021 10:42-0400 Diastolic blood pressure 93 mm[Hg] Mart RICE [facility] [place] 10-31-2021 10:42-0400 Heart rate 75 /min Mart MAN [place] [facility] [place] 10-31-2021 10:42-0400 Systolic blood pressure 142 mm[Hg] Mart MAN [facility] [place] Encounters Encounter Date Encounter Type Care Provider Facility Start: 08-24-2023 End: 08-24-2023 ambulatory Sadaf Nath Other [facility] Other Start: 08-24-2023 Telephone encounter Sadaf Jcarlos [facility] Start: 07-22-2023 End: 07-22-2023 ambulatory Sadaf Nath Other [facility] Other Start: 07-22-2023 Telephone encounter Sadaf Jcarlos [facility] Start: 05-29-2023 End: 05-29-2023 ambulatory Sadaf Nath Other [facility] Other Start: 05-29-2023 Telephone encounter Sadaf Jcarlos [facility] Start: 05-21-2023 End: 05-21-2023 ambulatory Sadaf Nath Other [facility] Other Start: 05-21-2023 Telephone encounter Sadaf Jcarlos [facility] Start: 04-28-2023 End: 04-28-2023 ambulatory Sadaf Jcarlos Other [facility] Other Start: 04-28-2023 Telephone encounter Sadaf Jcarlos [facility] Start: 04-27-2023 End: 04-27-2023 ambulatory Sadaf Nath Other [facility] Other Start: 04-27-2023 Telephone encounter Sadaf Jcarlos [facility] Start: 03-09-2023 End: 03-09-2023 ambulatory Sadaf Jcarlos Other [facility] Other Start: 03-09-2023 Office outpatient vi sit 15 minutes Sadaf Jcarlos [facility] Start: 03-02-2023 End: 03-02-2023 ambulatory Sadaf Nath Other [facility] Other Start: 03-02-2023 Telephone encounter Sadaf Jcarlos [facility] Start: 02-03-2023 End: 02-03-2023 ambulatory Sadaf Nath Other [facility] Other Start: 02-03-2023 Office outpatient vi sit 15 minutes Sadaf Jcarlos [facility] Start: 02-03-2023 Telephone encounter Sadaf Jcarlos [facility] Start: 01-19-2023 End: 01-19-2023 ambulatory Sadaf Jcarlos Other [employer] Other Start: 01-19-2023 Encounter for genera l adult medical examination without abnormal findings Sadaf Nath [facility] Start: 01-19-2023 Periodic preventive med est patient 18-39 yrs Sadaf Jcarlos [facility] Start: 01-25-2022 End: 01-25-2022 Patient encounter procedure MD Sadaf Nath Work Phone: [facility] [place] Start: 11-18-2021 End: 11-18-2021 Patient encounter procedure Mart MAN [facility] Start: 10-31-2021 End: 10-31-2021 Lab Drop off Mart MAN [facility] Start: 10-31-2021 End: 10-31-2021 Patient encounter procedure Mart MAN [facility] [employer] Start: 08-22-2021 Adult health examination Sadaf Jcarlos Other [employer] Other Start: 08-22-2021 Encounter for genera l adult medical examination without abnormal findings Sadaf Jcarlos Other [employer] Other Start: 02-05-2021 End: 05-01-[address] [facility] Facility:H1 Procedures Date Procedure Procedure Detail Performing Clinician Start: 11-18-2021 H/O: vasectomy Mart MAN Start: 10-31-2021 Vasectomy Mart Mercado Start: 12-10-2020 Open reduction of fr acture of ankle with internal fixation Mart MAN [place] Contraception care education Sadaf Jcarlos Other Tonsillectomy Mart MAN [place] Immunizations Immunization Date Immunization Notes Care Provider Fa cility 11-25-2020 SARS-CoV-2 (COVID-19 ) Ad26 vaccine, recombinant Mart [employer] [facility] [employer] Payers Date Payer Category Payer Unknown [id number] 1957 Unknown [id number] Self-pay Self Pay [id number] Unknown [id number] Social History Date Type Detail Facility Tobacco Unknown if ever smoked [facility] [employer] Comment on above: denies Sex Assigned At Male [facility] [employer] Start: 1990 Sex Assigned At Male F [facility] Medical Equipment Procedure Code Equipment Code Equipment Origin al Text Equipment Identifier Dates FDA Start: 12-10-2020 FDA Start: 12-10-2020 FDA Start: 12-10-2020 FDA Start: 12-10-2020 FDA Start: 12-10-2020 FDA Start: 12-10-2020 FDA Start: 12-10-2020 FDA Start: 12-10-2020 FDA Start: 12-10-2020 FDA Start: 12-10-2020 FDA Start: 12-10-2020 FDA Start: 12-10-2020 FDA Start: 12-10-2020 FDA Start: 12-10-2020 FDA Start: 12-10-2020 FDA Start: 12-10-2020 FDA Start: 12-10-2020 FDA Start: 12-10-2020 FDA Start: 12-10-2020 FDA Start: 12-10-2020 FDA Start: 12-10-2020 FDA Start: 12-10-2020 FDA Start: 12-10-2020 FDA Start: 12-10-2020 Clinical Notes 08-26-2020 to 08-24-2023 Note Date & Type Note Facility 08-24-2023 Evaluation note Encounter Date Diagnosis Assessment Notes Jul, Adult ADHD (ICD-10 - F90.9) [employer] Other 12-27-2023 Evaluation note* Encounter Date Diagnosis Assessment Notes Treatment Notes Treatment Clinical Notes Jun, Adult ADHD (ICD-10 - F90.9) [employer] Other 11-03-2023 Evaluation note* Encounter Date Diagnosis Assessment Notes Treatment Notes Treatment Clinical Notes May, Adult ADHD (ICD-10 - F90.9) [employer] Other 10-26-2023 Evaluation note* Encounter Date Diagnosis Assessment Notes Treatment Notes Treatment Clinical Notes Apr, Adult ADHD (ICD-10 - F90.9) [employer] Other 10-03-2023 Evaluation note* Encounter Date Diagnosis Assessment Notes Treatment Notes Treatment Clinical Notes Apr, Adult ADHD (ICD-10 - F90.9) [employer] Other 10-02-2023 Evaluation note* Encounter Date Diagnosis Assessment Notes Treatment Notes Treatment Clinical Notes Apr, Adult ADHD (ICD-10 - F90.9) [employer] Other 08-14-2023 Evaluation note* Encounter Date Diagnosis Assessment Notes Treatment Notes Treatment Clinical Notes Feb, Adult ADHD (ICD-10 - F90.9) Pt denies adverse side effects. He filled the 30mg dose last week. agrees to increase to 50mg in 2-3 weeks and monitor results. He had a lot of positive effects initially and agrees to continue same med. [employer] Other 07-11-2023 Evaluation note* Encounter Date Diagnosis Assessment Notes Treatment Notes Treatment Clinical Notes Jan, Adult ADHD (ICD-10 - F90.9) Pt scored highly on the adult screening questionaire. Admits he writes lists, forgets things and generally is easily distracted. Agrees to start medication. Will call in 30 days for followup on dose and will report any adverse effects immediately. Understands it is a controlled substance. [employer] Other 06-26-2023 Evaluation note* Encounter Date Diagnosis Assessment Notes Treatment Notes Treatment Clinical Notes Dec, Well adult exam (ICD-10 - Z00.00) We have discussed the necessity of following up with PCP regularly as well as specialists, as needed. Discussed F/U with dentistry and optometry at least yearly. Discussed all preventative measures/ cancer screenings as applicable to this patient. Emphasized the importance of a reduced fat, low carb diet to promote heart health and controlled blood sugars. Reviewed social history and ensured patient is safe within the home today. Pt denies any abuse of alcohol, nicotine, caffeine or recreational drugs. I have ensured patient is of stable mental and physical health today. We have discussed appropriate F/U schedule as well as blood work and vaccinations that apply. All questions answered and patient is sent home pleased, without concerns. Will check labs; sent home with ADHD adult questions. Will return in January to assess questions and review labs. Dec, Acute contact dermatitis (ICD-10 - L25.9) Rash present for 2 weeks - will treat w steroids. 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 [employer] Other 04-25-2022 Evaluation + Plan note Diagnostic Tests Pending * Semen Analysis Post Vasectomy 11/18/21 * Semen Analysis Post Vasectomy 11/19/21 [facility] [place] 04-25-2022 Hospital Discharge instructions Patient Education 11/18/2021 10:22:31 Preventing HIV Infection and AIDS Preventing HIV Infection and AIDS HIV (human immunodeficiency virus) infection is a long-term (chronic) viral infection. HIV kills white blood cells that help to control the body's defense (immune) system and fight infection. HIV spreads through semen, blood, breast milk, rectal fluid, and vaginal fluid. HIV is commonly spread through sexual contact and sharing needles or syringes, because these behaviors involve exchanging bodily fluids. Without treatment, HIV can turn into AIDS (acquired immunodeficiency syndrome), which is an advanced stage of HIV infection. AIDS is a very serious illness and can be life-threatening. What changes can I make to protect myself from HIV infection? Sexual contact To protect yourself from HIV through sexual contact: Use devices that prevent body fluids from passing between partners (barrier protection) every time you have sex. Barrier protection can be used during oral, vaginal, or anal sex. Commonly used barrier methods include: ?Male condom. ?Female condom. ?Dental dam. If you are at risk, ask your health care provider about taking medicine that can prevent HIV infection (pre-exposure prophylaxis, PrEP). Get tested for HIV and know the HIV status of your sexual partner(s). Avoid having sex with partners without a known HIV status. If you or your partner is HIV-positive, use protection during sex. Practice monogamy. This means you have only one sexual partner in your lifetime or only one partnerat a time (serial monogamy). Get tested and treated for STIs (sexually transmitted infections). Having an STI increases your risk for getting HIV. The only way to completely prevent HIV from being spread through sexual contact is not to have any kind of sex (abstinence), including oral, vaginal, or anal sex. Drug use To protect yourself from HIV through drug use: Do not use drugs, especially drugs that are injected. Avoid having sex while under the influence of alcohol and drugs. Alcohol and drugs can affect your ability to make good decisions and may lead you to engage in high risk behaviors. Do not share needles or syringes with anyone else. If you do share needles or syringes, consider taking PrEP to prevent HIV infection. Blood and bodily fluid To protect yourself from HIV through exposure to blood and bodily fluids from a person who has HIV: Cover any sores or wounds on yourself or the person with HIV. If you need to touch blood or bodily fluids from an infected person, use gloves and wash your handsafterward. Do not share items that touch bodily fluids or blood, such as toothbrushes or razors. What can happen if I do not make these changes? If you do not make these changes: You put yourself at risk of getting HIV from an infected person. HIV is a serious, life-threateningillness that cannot be cured. Having HIV makes it easier to get sick and more difficult to get well. You can pass HIV on to others even if you don't know that you have it. An infected mother can also pass it to her children through , childbirth, or . You expose yourself to complications from the virus. Without treatment, the virus progresses. As itmultiplies in your body, it causes the immune system to stop protecting you from infections and other health problems. You may get infections that you would not normally get if your immune system washealthy and working properly (opportunistic diseases). You put yourself at risk of side effects from HIV medicines. HIV medicines (antiretroviral therapy,ART) can help slow the virus from progressing and prevent its spread to others. People with HIV must take these medicines on a daily basis in order to live long, healthy lives. However, these medicines have side effects. Long-term use of ART medicines can lead to chronic health conditions, such as damage to the liver and kidneys, diabetes, and heart disease. People who take HIV medicines must useprotection during sex because they can still pass the virus on to sexual partners. You could also put yourself at high risk for getting other sexually transmitted infections. You put yourself at risk of having an unintended . Where to find support To get support preventing HIV infection and AIDS: Talk with your health care provider. Visit your local health department or clinic. Consider joining a support group. Where to find more information Learn more about HIV and AIDS from: U.S. Department of Health and Human Services: www.aids.gov Centers for Disease Control and Prevention: ?More information about preventing HIV: www.cdc.gov/hiv/basics/prevention.html ?How to find a location where you can get sexual health materials and treatment for free or for a low cost: gettested.cdc.gov Summary HIV spreads through semen, blood, breast milk, rectal fluid, and vaginal fluid. HIV is commonly spread through sexual contact and sharing needles or syringes, because these behaviors lead to an exchange of bodily fluids. To protect yourself from HIV through sexual contact, use a barrier protection method every time youhave sex. Avoid having sex while under the influence of alcohol and drugs. These substances may lead you to engage in high risk behaviors. Get tested for HIV and make sure your sexual partner(s) get tested too. This information is not intended to replace advice given to you by your health care provider. Make sure you discuss any questions you have with your health care provider. Document Released: 06/30/2017 Document Revised: 11/04/2019 Document Reviewed: 06/30/2017 [employer] Patient Education 2019 [employer] Follow Up Care 10/10/2021 10:51:54 With:JULIAN PIERRE, Mart Mcbride, URL Address: [address] [place] [phone]- When: only if needed [facility] 04-07-2022 Hospital Discharge instructions Patient Education 10/31/2021 11:12:12 Vasectomy, Care After Vasectomy, Care After This sheet gives you information about how to care for yourself after your procedure. Your health care provider may also give you more specific instructions. If you have problems or questions, contact your health care provider. What can I expect after the procedure? After your procedure, it is common to have: Mild pain, swelling, redness, or discomfort in your scrotum. Some blood coming from your incisions or puncture sites for one or two days. Blood in your semen. Follow these instructions at home: Medicines Take bgay-rnq-[id number] and prescription medicines only as told by your health care provider. Avoid taking NSAIDs such as aspirin and ibuprofen, because these medicines can make bleeding worse. Activity For the first 2 days after surgery, avoid physical activity and exercise that require a lot of energy. Ask your health care provider what activities are safe for you. Do not participate in sports or perform heavy physical labor until your pain has improved, or untilyour health care provider says it is okay. Do not ejaculate for at least 1 week after the procedure, or as long as directed. You may resume sexual activity 7 10 days after your procedure, or when your health care provider approves. Use a different method of control (contraception) until you have had test results thatconfirm that there is no sperm in your semen. Scrotal support Use scrotal support, such as a jock strap or underwear with a supportive pouch, as needed for one week after your procedure. If you feel discomfort in your scrotum, you may remove the scrotal support to see if the discomfortis relieved. Sometimes scrotal support can press on the scrotum and cause or worsen discomfort. If your skin gets irritated, you may add some germ-free (sterile), fluffed bandages or a clean washcloth to the scrotal support. General instructions Put ice on the injured area: ?Put ice in a plastic bag. ?Place a towel between your skin and the bag. ?Leave the ice on for 20 minutes, 2 3 times a day. Check your incisions or puncture sites every day for signs of infection. Check for: ?Redness, swelling, or pain. ?Fluid or blood. ?Warmth. ?Pus or a bad smell. Leave stitches (sutures) in place. The sutures will dissolve on their own and do not need to be removed. Keep all follow-up visits as told by your health care provider. This is important because you will need a test to confirm that there is no sperm in your semen. Multiple ejaculations are needed to clear out sperm that were beyond the vasectomy site. You will need one test result showing that there is no sperm in your semen before you can resume unprotected sex. This may take 2 4 months after your procedure. Do not drive for 24 hours if you were given a sedative to help you relax. Contact a health care provider if: You have redness, swelling, or more pain around your incision or puncture site, or in your scrotum area in general. You have bleeding from your incision or puncture site. You have pus or a bad smell coming from your incision or puncture site. You have a fever. Your incision or puncture site opens up. Get help right away if: You develop a rash. You have difficulty breathing. Summary After your procedure it is common to have mild pain, swelling, redness, or discomfort in your scrotum. Avoid physical activity and exercise that requires a lot of energy for the first 2 days after surgery. Put ice on the injured area. Leave the ice on for 20 minutes, 2 3 times a day. Do not drive for 24 hours if you were given a sedative to help you relax. This information is not intended to replace advice given to you by your health care provider. Make sure you discuss any questions you have with your health care provider. Document Released: 01/30/2006 Document Revised: 06/25/2018 Document Reviewed: 10/09/2017 [employer] Patient Education 2020 [employer]. Follow Up Care 10/11/2021 13:55:26 With:JULIAN PIERRE, Mart Mcbride, URL Address: [address] [place] [phone] When: Unknown [facility] 03-17-2022 NoteChief Complaint Pt is here for vasectomy evaluation HPI Staff Mello is a 30 y.o. male here for a vasectomy evaluation. Pt has 1 daughter, 5 months old. Pt is in agreement with vasectomy. Dysuria: denies Incomplete bladder emptying: denies Hematuria: denies Frequency: denies Urgency: denies Nocturia: denies Stream: steady stream Leaking: denies Post void dripping: denies Wearing pads/ Depends: denies Urge incontinence: denies Stress incontinence: denies Incontinence without Sensory Awareness: denies Abdominal pain: denies Flank pain: denies Sexual complaints: _ History of Present Illness Tests Reviewed: Reviewed UA. I have reviewed and verified the staff HPI to be accurate for this encounter. I have reviewed the previous health record information and history for this patient from Dr. man There have been no associated fever, chills, flank pain, or blood in the urine. Denies any urinary infections since last encounter. Review of Systems PHQ Score Initial Depression Screen Score: 0 ROS - Provider Constitutional: denies weight loss, denies hot flashes. Eyes: denies eye problems. Gastrointestinal: denies nausea, denies vomiting. Cardiovascular: denies chest pain or angina. Integumentary: no dryness Musculoskeletal: denies musculoskeletal symptoms. ENMT: denies otolaryngeal symptoms. Respiratory: no shortness of breath. Heme/Lymph: denies easy bleeding tendency, denies easy bruising tendency. Psychiatric: no confusion, no anxiety. Genitourinary: denies dysuria, denies hematuria, denies discharge, denies urinary frequency, deniesurinary hesitancy, denies nocturia, denies incontinence, denies genital sores, denies decreased libido, and denies erectile dysfunction. Physical Exam Vitals & Measurements HR: 72(Peripheral) BP: 137/85 HT: 190 cm HT: 190.0 cm WT: 148 kg WT: 148.0 kg BMI: 41 General Appearance: alert, no distress, well nourished, well developed male. Head: normocephalic . Eyes: normal orbit and globe. ENMT: normal examination of external ears. Chest: Lungs CTA, respirations non labored. Cardiovascular: regular rate and rhythm. Abdomen: soft, non distended, no tenderness, no mass or organomegaly, no hernia. Genitourinary: normal scrotum, normal testes, normal urethra, normal epididymis, normal vas deferens/spermatic cord. Flank Pain: none. Bladder: nonpalpable. Penis: normal shaft, normal glans. Prostate: normal prostate, estimated weight 35 gms, no hard nodule observed. Lymph Nodes: unremarkable palpation of the cervical area. Skin: warm, dry, no bruising. Psychiatric: cooperative, affect appropriate for age, normal judgement, euthymic mood. Assessment/Plan 1. Vasectomy evaluation (Z30.09: Encounter for other general counseling and advice on contraception) Pt is not having any urinary issues at this time. Will schedule Vasectomy. The procedural risks, benefits, details, and treatment alternatives of sterilization have been discussed with the patient today. He understands this procedure is considered permanent, even though vasectomy reversals can be performed. There is no guarantee of successful reversal resulting in , however. Risks discussed include bleeding, infection, failure with in about 1:2500, post-vasectomy syndrome (chronic pain in the testicle or scrotum), possible association with prostate cancer development in the future, and erection problems, among others. Despite these risks, he wishes to proceed. He also understands that he is not considered sterile until a negative semen sample has been received after about 2-3 months after the vasectomy. Full informed consent has been obtained. Will order Local anesthesia. All questions and concerns were discussed. Pt acknowledge and understands. Pt will call our office with any changes in urinary symptoms See above Which I went over with the patient at length with the appropriate booklet pros and cons of risk thebenefits and we will arrange for the vasectomy in the office under local Follow-up With When Contact Information JULIAN PIERRE, Mart Mcbride, URL [address] [phone] Additional Instructions: schedule vasectomy Patient Education Vasectomy, Care After I, Daiana Kong personally scribed for Dr. Man on 10/10/2021 10:31:20. . .. Problem List/Past Medical History Ongoing Vasectomy evaluation Historical No qualifying data Procedure/Surgical History ORIF - Open reduction of fracture of ankle with internal fixation (12/10/2020), Tonsillectomy. Medications Colace 100 mg Cap, 100 mg= 1 cap(s), Oral, Daily, PRN, Not taking Colace 100 mg Cap, 100 mg= 1 cap(s), Oral, BID, Not taking Naprosyn 500 mg Tab, 500 mg= 1 tab(s), Oral, BID, Not taking Percocet 5 mg-325 mg oral tablet, 1 tab(s), Oral, q6hr, PRN, Not taking turmeric 500 mg oral capsule, 1000 mg= 2 cap(s), (more content not included)... [facility]Result Comment: Electronically Signed By: Mart MAN MD\.br\Date and Time Signed: 10/10/21 10:33 EDT\.br\Electronically Co-Signed By: Daiana Kong MA\.br\Date and Time Co- Signed: 10/10/21 10:31 [id number] History general Narrative - Reported* Type Description Date Surgical History T & A 1997 Surgical History Right leg surgery, broke bone [employer] Other 05-01-2021 History general Narrative - Reported* Type Description Date Surgical History T & A 1997 Surgical History Right leg surgery, broke bone Hospitalization History SEE SURGICAL HX [employer] Other 01-31-2021 NoteHNO ID: [id number] Author: Savannah Marte (Tech) Service: ? Author Type: Re Examiner Type: Progress Notes Filed: 08/26/2020 9:36 AM Note Text: Semen wash for IUI. Savannah MarteThe [facility] Hospital At SouthwoodsvelandEvaluation + Plan note Future Appointments Appointment Date:11/18/2021 09:45:00 AM Scheduled Provider:Mart MAN MD Location:[facility] Appointment Type:URO Office Visit [facility] Evaluation noteNo assessment information available [facility] Work Phone: Evaluation noteNo InformationNort Scatter Lab Other History general Narrative - [facility] Other Hospital course Narrative No data available for this section [facility] Hospital Discharge instructions No data available for this section [facility] Summary Purpose Family History No Family History Records FoundNo Family History Records FoundNo Family History Records FoundNo Family History Records Found Advance Directives Advance Directive Response Recorded Date/ Time Advance Directives No January 25 9:48am Chief Complaint and Reason for Visit Chief Complaint Z30.8 Reason for Referral Reason [place] office - in terested in testing - tree nut allergy, but would like this verified to see what his 1 yo daughter is possibly allergic to Diagnosis 1 Tree nut allergy (Z9 1.018) Referral Organization [facility] Referring Provider First Name Sadaf Referring Provider Last Name Jcarlos Referring Provider Specialty Family Medi cine Referred Organization [facility] Referred Provider Adrian Armstrong Referred Address ,[place], [place],[address] Referred Provider Specialty Allergy/Immu nology Referral Priority Routine Additional Source Comments (unrecognized sect ion and content) No Status Records FoundNo Status Records FoundNo Status Records FoundNo Status Records Found INFORMATION SOURCE (unrecogn ized section and content) DATE CREATED AUTHOR 07/03/2021 [facility] DATE CREATED AUTHOR AUTHOR'S ORGANIZ ATION 08/22/2021 [facility] DATE CREATED AUTHOR AUTHOR'S ORGANIZ ATION 02/04/2022 [facility] DATE CREATED AUTHOR AUTHOR'S ORGANIZ ATION 02/11/2022 [facility] Care Teams (unrecognized sec tion and content) Team Status: Inactive Member Role Status Dates Sadaf Nath MD Primary Care Provider Active Mart Man MD Attending Provider Active Team Status: Active Member Role Status Dates Sadaf Nath MD Primary Care Provider Active Goals (unrecognized section and content) Goals may be documented in a n alternate section REASON FOR VISIT (unrecogniz ed section and content) Wellness/Other2 WEEK FOLLOW UPmessagemedication discussionrefillrefillRefillrefillVyvanseRefillrefill FOR RECORDS PERTAINING TO PATIENTS WHO ARE OR HAVE BEEN ENROLLED IN A CHEMICAL DEPENDENCY/SUBSTANCEABUSE PROGRAM, SOME INFORMATION MAY BE OMITTED. This clinical summary was aggregated from multiple sources. Caution should be exercised in using it in the provision of clinical care. This summary normalizes information from multiple sources, and as a consequence, information in this document may materially change the coding, format and clinical context of patient data. In addition, data may be omitted in some cases. CLINICAL DECISIONS SHOULD BE BASED ON THE PRIMARY CLINICAL RECORDS. [facility]. provides no warranty or guarantee of the accuracy or completeness of information in this document.
[2024-01-19 12:51] LABS: Free T4 0.89 ng/dL (0.76-1.46)
[2024-01-19 12:55] LABS: Thyroid Stimulating Hormone 2.198 uIU/mL (0.358-3.740)
[2024-01-20 04:08] LABS: FSH 2.7 mIU/mL (1.5-12.4); Luteinizing Hormone(LH) 3.8 mIU/mL (1.7-8.6); Testosterone 108 ng/dL (264-916)
[2024-01-20 14:10] LABS: ACTH, Plasma 12.8 pg/mL (7.2-63.3)
[2024-01-21 08:11] LABS: IGF-1 174 ng/mL (95-290)
[2024-01-22 15:10] LABS: Estrogens, Total 52 pg/mL (56-213)
== END 2024-01-19 11:09 | disposition home or self-care (01) ==
LOC: LAB 11:09
PROVIDERS: PCP Family Medicine; Visit Provider Internal Medicine
DX: E22.1 Hyperprolactinemia (principal); N62 Hypertrophy of breast
CPT/HCPCS: 36415; 82024; 82533; 82672; 83001; 83002; 83003; 84146; 84305; 84403; 84439; 84443; 84702

== ENCOUNTER 2024-02-10 08:49 | Outpatient (OUT) | payer BC, SELFPAY ==
--- NOTE | 2024-02-10 08:58 | MR_ITS ---
The [address] [address] Patient Name: GUADALUPE ARCHER MRN: [id number] date: 1990 Sex: M Assigned Patient Location: MRI Current Patient Location: MRI Accession/Order Number: [id number] Exam Date: 02/10/2024 09:00 Report Date: 02/10/2024 10:51 At the request of: LANCE RUIZ Procedure: MR head/brain wo/w con MR head/brain wo/w con, 02/10/2024 9:00 AM EDT INDICATION: Hyperprolactinemia E22.1, Galactorrhea O92.6 COMPARISON: There is no appropriate prior study for comparison. TECHNIQUE: Multiplanar, multisequential MRI images of brain were obtained without and with injection of contrast. FINDINGS: The cerebral sulci as well as ventricular system are appropriate for age. There is no restricted diffusion. Pituitary gland: There is a 6 x 4 mm (CC/transverse) lesion in the left pituitary gland with mild gradual enhancement most likely consistent with a microadenoma. No other abnormality of the pituitary gland is noted. The pituitary stalk is in midline. The cavernous sinuses and optic chiasma are unremarkable. There is no intracranial mass, mass effect, midline shift, intra or extra-axial fluid collection or large hemorrhage. No abnormal enhancing lesion is noted. Normal flow-void in the intracranial vessels is noted. The visualized portions of orbits, mastoid air cells as well as paranasal sinuses are unremarkable. MR/MR head/brain wo/w con IMPRESSION: Left pituitary microadenoma. No acute intracranial process is noted. Electronically authenticated by: BOGDAN QUINONES Date: 02/10/2024 10:51
--- OUTSIDE RECORDS SUMMARY | 2024-02-10 09:05 | XMS_ITS | CCD ---
Author Organization [facility] Care Team Providers Care Radial Drill Operator Name Role Phone DR CATARINA DOCTOR Admitting Unavailable DR VINAYAK ELMORE Attending Unavailable SADAF NATH Primary Care Physician MD Sadaf Nath Primary Care Provider MD Mart Man Attending Provider Sadaf Nath Unavailable Allergies Allergy Classification Reported Allergen(s) Allergy Type Date of Onset Reaction(s) Facility (15 sources) Amoxicillin; Translations: [amoxicillin] Drug Allergy [facility] Factor 14 (3 sources) Penicillins; Translations: [penicillins] Drug allergy [facility] Factor 14 (12 sources) tree nut, unspecified Drug allergy Anaphylaxis, Unknown [facility] Factor 14 (12 sources) Penicillin Drug Allergy hives [facility] Other (9 sources) Pseudoephedrine Drug Allergy Unknown [facility] Other (9 sources) Morphine Sulfate-NaCl Drug allergy Comment:Throat Swelling [facility] Other Medications Current Medications Medication Drug Class(es) [...] day(s), # 10 cap(s), Refills(s) 0, [id number], 190, cm, 10/31/21 10:54:00 EDT, Height/Length Dosing, 148, kg, 10/31/21 10:54:00 EDT, Weight Dosing Start Date: 10/31/21 Stop Date: 11/05/21 Status: Ordered docusate sodium 100 mg oral capsule (3 sources) Start: 12-10-2020 take 1 capsule by mouth twice daily Colace 100 mg Cap 100 mg = 1 cap(s), Oral, BID, # 60 cap(s), Refills(s) 0, [id number], 183, cm, 12/10/20 7:06:00 EDT, Height/Length [...] Active Start: 07-23-2023 take 1 capsule by [facility] every twenty-four hours Vyvanse 50 MG 1 capsule in the morning Orally Once a day for 30 days Jun, Active Start: 05-29-2023 take 1 capsule by [facility] every twenty-four hours Vyvanse 50 MG 1 capsule in the morning Orally Once a day for 30 days May, Active Start: 05-21-2023 take 1 capsule by mo [facility] every twenty-four hours Vyvanse 50 MG 1 capsule in the morning Orally Once a day for 30 days Apr, Active Start: 04-27-2023 take 1 capsule by [facility] every twenty-four hours Vyvanse [...] q6hr, # 20 tab(s), Refills(s) 0, Pharmacy: [facility]/pharmacy #[id number], 183, cm, 12/10/20 7:06:00 EDT, Height/Length [...] Facil ity Lab Reportson 02-03-2022 Lab Reports [id number] 0CD:[address] [facility] Semen Analysis, Post Vasecto myon 01-25-2022 Semen Analysis, Post Vasectomy Few Nonmotile Sperm Normal None Seen [facility] Comment on above: Performed By: #### S EMPOST #### [address] Result Comment: PERF ORMED BY: [place] [address] PATHOLOGIST DROP FORGER TOO SLOAN M.D. Semen analysis post vasectom y panelOrdered By: Mart Man on 01-25-2022 Semen analysis p vasectomy panel (Merari) Few nonmotile sperm None Seen [facility] Ambulatory Visit Summaryon 0 11-18-2021 Ambulatory Visit [...] RADHA Mckeon When: Only if needed Where: [address] [place], [place] [id number]- Medications What How Much When Why Instructions [...] An infecte (more content not included)... Normal [facility] Patient Educationon 11-18- 22 Patient Education [...] sharing needles or (more content not included)... [facility] Urology Office/Clinic Noteon 11-18-2021 Urology Office/Clinic [...] PIERRE, Mart Mcbride, URL Only if needed [address] [place] [id number]- Additional Instructions: Patient Education Preventing HIV Infection [...] Diagnostic Results Tests Reviewed: Reviewed UA. Neel [facility] Comment on above: Result Comment: Elec tronically Signed By: Mart MAN MD\.br\Date and Time Signed: 11/18/21 10:47 EDT\.br\Electronically Co-Signed By: Ramo Yap\.br\Date and Time Co-Signed: 11/18/21 10:33 EDT Coding Summary.on 11-07-2021 Coding Summary. CD:[id number] Gh 0bWw+PGhlYWQ+WP8MWPOzR 01wbDZerU3IB0pTIE3FVUF MIBWTOZ8ZCN5ehDR1AHacY 2VybiAv AcyvsJBtWY84SXh8CXT8wT nbIPuvnD2bdEMcD1l8SoEn PN81zS28EBrlPUMgCfA1Jc ZpbjsgbWFy S7ofPbCdeBPvSoq+PHRhYm xlIHdpZHRoPScxMDAlJyBz hZbsXA9aLv2fPDCoLJSwxS xhcHNlOiBj y0ahXCKtUNwjSK7ufXjnH8 KdyME3UXBuy7f9Gz63yUT+ GHByRBY2hTsxTPibs105Qm Ubz9uzKSS3 tJEtPTjaNHF7V56ni8R3CD HuCMKcIKP0dNP6gJ6xoOke srrdH8WhzWQpCrV4AQZ4yT RulM4qsTqx qhrshU5yDjh+K46VPA0RBV JFUD4PGxm5U9QwVphfbHR+ DC80KZJsKD94mRCyiXDsh9 rsyEs9AyJd LYQlBRO6aRehOFmie5UbEQ EwE90yxSUgv6F9ZAPjgQok oSSpKcGybXT9gU6qMBzrxa bar5zhkhhe Gkhut4uwvq85fB89P66vTR cpEDUkQPV3JORiZCOoiMll vb3aqP6xPp5+IPoog2ttw9 hwbFf0VkTs TIEtcdEuzUvuCSY5h4BpGj 75X2DpyZnkw2AuLal6ot12 xXOau3T4yHY5LIiiAMAadW 2rTZamNzQ6 DIRpEbYxwL52tRNoCXsxOs 0lxXgzqZktRG4gPTJpfkpf ELDwrG1oGNCeiQMqgTpaMY 4wNTBpbjtm z618KdZrJLZ5GXYjrVShR6 HlyB8gNsCyPOQfLAOwZ5Np dUNyEAncB845HZojOgB8HL GykbDtF6Qu STXueDfcHqA4i4Z2Aa2Rj5 PvjedkJXO5MMkhTEI6MgA3 PvUlLeM4E6PhJah2DSIrvP yuCG1xX5Cm YQEnuxdxhldstQN9LQSpPL KyjC63gGVvLSgdNi7zy4P8 c321LSYnJHTatD00Rv1yiJ ogMTBwdCBU gT0yljmqz3cfsbvpToBgUP PqLNi3RAo3HHCjjTriPbPk NPT7EvW6BGX4oODkxS9fpY mrppbirJ5h Oyc+F17clF1tRJV2DEU6ru zwTXTbhtDqAE98BO15O6Gu PjwvdGFibGU+PGRpdiBzdH bgEG8pRkGy z7nnp5ViTFtvQ2PwOBDpOS tqBdq4JITqRJA6kQE5rP8d DBXcBUwah5I9rKM3S4Rjgn Tqrn0dh3qy CHHjLEmzZ50fhCMgd9M7PD XsnPN2TVZubVwnApKjkB20 Oyc+CFFzcOcgt5LiKgwpw2 ign3jzmTt3 MoZnWFBxnkPnvYnkKOY8h5 QlTu20D64eIZluNVBnGWRx AQJbVRBhjSdgjl0alZ5qVr 8+PGNvbCB3 rUS7qJ0lQIHaDiS6PWzkQ0 30QhKowKXxEcxav3lvb3zn jQd9EoRgNPHkizUdlNclNR Q4g4KlWq22 L91bJSgrFGZpRVNoGRHpAM KykDqqnp7glX2hKz3+PC9j x9vdfq96lJ59jGC+PHRkIH Q4fIzdSMsn AOZljY5mKJxqJpD6PRHoYx IkyI10vUClEWrePp0ceQpe rBklRC8jJKAqdwucj108Wu Dbr3heERPy tXWwZMiyOIM1E58xw1E2AY RoMYJwQMS3vTL0uA7neXzi bjogbGVmdDsgdmVydGljYW tyTDmsM856 IHRvcDsnPlBhdGllbnQgTm ZdDRs0J5CtVoo1MMDghOlp HZ7xfVPpHXotBb0rmBelkN lsZS5tMOQs pmbyb859IwIdu6mfHLKttJ McEXxmCHZ5F57jq8A1KKEq XITuTWI9hJL5yI6roFtbdn ogbGVmdDsg ssDanXkfUVbuTGmjI139HB RvcDsnPkJpcnRoIERhdGU6 AK56GM60pJZsq9D2wGF1J5 BhZGRpbmct cuemaEN7QBBpAJCooU92We 5hhUvsKm3vEQOfTMM8ZYZx rGIrD7YuiU9sUxSzKGKcVD InV0ObiUXa IIrsJ973YDtaBfK7OMHffv HtF5VsXRRycYbeOdK3h0R2 Om3EW9J8BZ21SP23kYWoh9 Y8mXB7N0Fc YIDqqantzusrmMO7FEMhSV HyqW96Sw0amCmjZw9zJORt EXF2ADIzfXQyK6SthM0jBq AjMDAwMDAw M5ImfRFnPVanU015NZviOe A6IPQpynXjQ9HfRBJpvGyl PeG8c1B9Gn8SGHo7JH43BN 57xNPrt1Q6 rGB2S2AoUGEvpeoicdvbqT P2NVJmFBWcpE68Dt8tkKlw Td2jBZMkPKE4DDAzuENuF4 GtxH5lWrAm FVTuECGzH6QrhFXjSElhD4 11YRziGfW9LCBhqzSoY6Pd VVKqwYyeRvM6p9U8No1AZN PqSH08HFX5 lUD1FN97AV81I6ExIasdcT FibGU+PHRhYmxlIHdpZHRo HOdvHLYtWrMrbTxaIH7oMr 9yZGVyLWNv uSmdhGXlJoPvj7doPQCpLY avIJ3vyAeeN6GgsMH7CGTd g4g5Pp03E16kT0YejGK+PG VcjRG3jFU3 sF1eVfZgWrP6BVpjF284Bc IhjJIuOkfjk1fhk8nzgJw4 YhZ1HRUqkoUhmOnsWXY6h2 TqOi52H29o IHdpZHRoPSIxNSUiIHZhbG mlry6chC6xOs1+PGNvbCB3 hBN4jU7uDmQmQvA1FJtiI9 49InRvcCIv Iasvv6tjv5eekVw4TyYbIL TursTccLwgRAG8i6JrCp84 R0KccSewc5BnSwt3kk17qE Gla3N8uNW2 H4JvNNEozgvzxOPsnFauYV 5kZTGbnpuiEARiyC4hAIYn W9g3JtXvLsF0BRjtC3Qoky M1DWYrkIXf WNgoIEI3M19ov4V1NUScWR HfQVP7jQV2vG9nhReqkdfk bGVmdDsgdmVydGljYWwtYW ueH982FWKb vUmcETTigG0dSZUrmJRnvR qiTM0hEBHdxwsnXlTVRNDT KHCQV0zMDsMSRG7OGrxffM Q+PHRkIHN0 nOziUXfuVHVpeV8kBQGyP6 j8ZqQcTzI6GKbzU1AkJZVd ixqwUx90fQ4lJyIpSdJ1LF uiR0BwrwI2 TENtnKEvPItqTXK1P33io4 A6UNPcVALmRHJ5mTN1uN5b bGlnbjogbGVmdDsgdmVydG ljYWwtYWxp S296XZOduEbdTpG0IhE3Xs P4XQH3I8OuLlw2GSTrnCtp NH7thECiYPolXx1fzOlxsN hsUN1eOKDc majePNWjjF3kCBDwnVLzkV prFB7gTNIyliuav951QtBm BOH5HYVrtHZfA4VizP1rEe AjMDAwMDAw X0YntCRwVDgyG010FPelLr L8KADweuMwY3CtMRGukNys UeF9s2B5Bs1hSITUYDPnrx wvdGQ+PHRk UEY7nMynNBufYPIylY3sYH GzC2e7NwNfKxE8VAcoK7On JMPcfgjhPz89nI8wQkGmRl M5LBbuT7Xm vhN7BYUqiMPrUIcxHYL7V9 1aa2F3FAHiOFLuESC6fCQ0 zU8blWqidxvnrWGlhXopve VydGljYWwt VAysH535IYRdkGiyDo6jbE M7B0CaCjz8HGByqPbhLY2y nTNuEEqwWc8fgUnqvLhnPG 4wNTBpbjtw JOYjpO3tVFYhzHBiqNifYP 0jTJUntfgro526CaQjCAK8 RGJluTHdV2FcoZ7xUwLcWY UnSVNcP8Gd mWSeXDtgR803CRdvZyP5OZ FudgMhY6DfQVLylFqkRnC2 r0X8Fy4JMBYvOHNzeDLkTf W5B0HdCxfl dHI+RB26PCJuRK90sSJqkM Qiz9gauIm0QgQdIAIkHLT2 sSmnRGpbi8ZeGLDfC99nkT Bdb3W1MWYz fOklpHWoLyLopLC9rP5oVN mzkwhie6dgvgjxIpwbk0im ib34lL41I27yJUeyKWShAH IzMCUiIHZh pYtzpb9bhH1wXa4+PGNvbC X2wZM9yE3zHuIxBmA3WHnu K281HiGltFNkKunac2lva2 cvjLp0FtYh WWQyquSivEjyOHE2h0ScQe 61P28lKDpuGDSbFYDzHEVa EGEtqUfbhr3buZ7nBu6+PC 2wi0zzsv71 pH52eZA+XEZjVXS4fValMG ozDRAieE0wTNhcAzQ0JQMu LtBxgN03pKXiCTnrAc7ijK odbHpbYM8b ZCPbazorv936XtEhe0gdTH EpbMIjBVsaZAZ6T67gk7K7 TIQiZKDfBOP0tHH8xJ5hiD lnbjogbGVm dDsgdmVydGljYWwtYWxpZ2 43PKRatMdpDmNwoDTpZ0mu iaSQMK1qNpghyEQ+PHRkIH K0fHtzPLie MQBgaQ5pKLLtT0q6LxXhUw L9KEzbX5RdbgI3NVIblOQf HWQpiHWUvS4ifrxtt0qgke ogIzAwMDAw WXl3LCa5AZYdxHseAoFeIS D1QzN5SAC9jYPxyW3jyAyb jucnlF3iEfv+RklOOjwvdG Q+PHRkIHN0 sXxbNElyUQRmcQ6jSUDvD1 h3HlTbOwX4NTsoO2KmwpD7 ZEBtiKCrIEGkvQPDkO1luj izq4dppdnl QpHwLIYhXAc5KSj1DWQvuO cnHbGrBGP4EsJ4NZH0iMRe qJ2zpKypjafzcK9aPss+TV JOOjwvdGQ+ FBRmACA3mDwzETorOVJdlO 8kDJJeU6e3NhYwSyM0YKyq F6DmovX9ZODkaHClIBIjdX DQsL5pibyi k3degjkkDcAmJKXjXEw2MM g9ZETggMxxSnOrKUP5TaJ5 PFF4vKRewL8vjHyunepexH 9wOyc+UGF5 LUR4NG15AO40L8LkIrpngN FibGU+PHRhYmxlIHdpZHRo XWxeGWZnFbQrhCjyJC5zAl 9yZGVyLWNv bGxh (more content not included)... Normal [facility] Consent for Procedure/Surger yon 11-01-2021 Consent for Procedure/Surgery [id number]:127 Normal [facility] Patient Educationon 11-01-19 22 Patient Education [...] these instructions at home: Medicines ? Take psfo-lbx-kpumtin and prescription medicines only as told by [...] 01/30/2006 Document Revised: 06/25/2018 Document Reviewed: 10/09/2017 [employer] Patient Education ? 2019 [employer]. [facility] Urology Office/Clinic Noteon 10-31-2021 Urology Office/Clinic [...] Information JULIAN PIERRE, Mart Mcbride, URL [address] [place] [phone] Additional Instructions: Patient Education Vasectomy, Care After [...] SARS-CoV-2 (COVID-19) Ad26 vaccine 11/25/2020 Recorded Normal [facility] Comment on above: Result Comment: Elec tronically Signed By: Mart MAN MD\.br\Date and Time Signed: 10/31/21 12:06 EDT\.br\Electronically Co-Signed By: Rafaela Madrigal MA\.br\Date and Time Co-Signed: 10/31/21 11:29 EDT Pre-Authorization for Medica l Treatmenton 10-15-2021 Pre-Authorization for Medical Treatment [id number] 0CD:127 Normal [facility] Ambulatory Visit Summaryon 0 10-10-2021 Ambulatory [...] RADHA Mckeon When: Why: schedule vasectomy Where: [address] [place] [id number] Medications What How Much When Why Instructions [...] these instructions at home: Medicines ? Take mijz-gjz-uvsgkpz and prescription medicines only as told by [...] we (more content not included)... Normal [facility] Patient Educationon 10-11-19 Patient Education Urology [...] these instructions at home: Medicines ? Take ocol-zlg-mfedesf and prescription medicines only as told by [...] 01/30/2006 Document Revised: 06/25/2018 Document Reviewed: 10/09/2017 [employer] Patient Education ? 2019 [employer]. [facility] Qing 08-26-2020 CNOV Office Visit (ANDRBE ) MELLO ARCHER ([id number]) 1990 M Date Time Provider Department 08/26/20 8:00 AM ANDROLOGY RN GYNECOLOGYSAVANNAH JEAN BAPTISTE During your visit today, we recorded the following information about you: Savannah Marte Tech 08/26/2020 9:36 AM Signed Semen wash for IUI. Savannah Marte Referring Provider: SELF [200] Allergies As of Date: 08/26/2020 (Not on File) Date Reviewed: Never Reviewed Primary Visit Diagnosis:Procreative management [Z31.9] Problem List As Of Date: 08/26/2020 (None) Encounter Status:Closed by AWAIS OCONNOR on 08/26/20 Normal [facility] Vital Signs Date Time Vital Sign Value Performing Clinician Facility 03-09-2023 10:15-0400 Body height 185.42 cm Sadaf Nath Other [facility] Other 03-09-2023 10:15-0400 Body mass index (BMI) [Ratio] 42.48 kg/m2 Sadaf Nath Other [facility] Other 03-09-2023 10:15-0400 Body weight 146.06 kg Sadaf Nath Other [facility] Other 03-09-2023 10:15-0400 Diastolic blood pressure 89 mm[Hg] Sadaf Nath Other [facility] Other 03-09-2023 10:15-0400 Systolic blood pressure 136 mm[Hg] Sadaf Nath Other [facility] Other 02-03-2023 11:30-0400 Body height 185.42 cm Sadaf Nath Other [facility] Other 02-03-2023 11:30-0400 Body mass index (BMI) [Ratio] 42.87 kg/m2 Sadaf Nath Other [facility] Other 02-03-2023 11:30-0400 Body weight 147.42 kg Sadaf Nath Other [facility] Other 02-03-2023 11:30-0400 Diastolic blood pressure 86 mm[Hg] Sadaf Nath Other [facility] Other 02-03-2023 11:30-0400 Systolic blood pressure 119 mm[Hg] Sadaf Nath Other [facility] Other 01-19-2023 13:00-0400 Body height 185.42 cm Sadaf Nath Other [facility] Other 01-19-2023 13:00-0400 Body mass index (BMI) [Ratio] 42.87 kg/m2 Sadaf Nath Other [facility] Other 01-19-2023 13:00-0400 Body weight 147.42 kg Sadaf Nath Other [facility] Other 01-19-2023 13:00-0400 Diastolic blood pressure 93 mm[Hg] Sadaf Nath Other [facility] Other 01-19-2023 13:00-0400 Systolic blood pressure 141 mm[Hg] Sadaf Nath Other [facility] Other 10-31-2021 10:42-0400 Blood Pressure Location Mart RICE [facility] 10-31-2021 10:42-0400 Diastolic blood pressure 93 mm[Hg] Mart RICE [facility] 10-31-2021 10:42-0400 Heart rate 75 /min Mart MAN [facility] 10-31-2021 10:42-0400 Systolic blood pressure 142 mm[Hg] Mart MAN [facility] Encounters Encounter Date Encounter Type Care Provider Facility Start: 08-24-2023 End: 08-24-2023 ambulatory Sadaf Nath Other [facility] Other Start: 08-24-2023 Telephone encounter Sadaf Jcarlos [facility] Start: 07-22-2023 End: 07-22-2023 ambulatory Sadaf Nath Other [facility] Other Start: 07-22-2023 Telephone encounter Sadaf Jcarlos [facility] Start: 05-29-2023 End: 05-29-2023 ambulatory Sadaf Nath Other [facility] Other Start: 05-29-2023 Telephone encounter Sadaf Jcarlos [facility] Start: 05-21-2023 End: 05-21-2023 ambulatory Sadaf Nath Other [facility] Other Start: 05-21-2023 Telephone encounter Sadaf Jcarlos [facility] Start: 04-28-2023 End: 04-28-2023 ambulatory Sadaf Jcarlos Other [facility] Other Start: 04-28-2023 Telephone encounter Sadaf Jcarlos [facility] Start: 04-27-2023 End: 04-27-2023 ambulatory Sadaf Nath Other [facility] Other Start: 04-27-2023 Telephone encounter Sadaf Jcarlos [facility] Start: 03-09-2023 End: 03-09-2023 ambulatory Sadaf Jcarlos Other [facility] Other Start: 03-09-2023 Office outpatient vi sit 15 minutes Sadaf Jcarlos [facility] Start: 03-02-2023 End: 03-02-2023 ambulatory Sadaf Nath Other [facility] Other Start: 03-02-2023 Telephone encounter Sadaf Jcarlos [facility] Start: 02-03-2023 End: 02-03-2023 ambulatory Sadaf Nath Other [facility] Other Start: 02-03-2023 Office outpatient vi sit 15 minutes Sadaf Jcarlos [facility] Start: 02-03-2023 Telephone encounter Sadaf Jcarlos [facility] Start: 01-19-2023 End: 01-19-2023 ambulatory Sadaf Jcarlos Other [facility] Other Start: 01-19-2023 Encounter for genera l adult medical examination without abnormal findings Sadaf Nath [facility] Start: 01-19-2023 Periodic preventive med est patient 18-39 yrs Sadaf Jcarlos [facility] Start: 01-25-2022 End: 01-25-2022 Patient encounter procedure MD Sadaf Nath Work Phone: [facility] [place] Start: 11-18-2021 End: 11-18-2021 Patient encounter procedure Mart MAN [facility] Start: 10-31-2021 End: 10-31-2021 Lab Drop off Mart MAN [facility] Start: 10-31-2021 End: 10-31-2021 Patient encounter procedure Mart MAN [facility] Start: 08-22-2021 Adult health examination Sadaf Jcarlos Other [facility] Other Start: 08-22-2021 Encounter for genera l adult medical examination without abnormal findings Sadaf Jcarlos Other [facility] Other Start: 02-05-2021 End: 05-01-[address] LICEA [facility] Facility:H1 Procedures Date Procedure Procedure Detail Performing Clinician Start: 11-18-2021 H/O: vasectomy Mart MAN Start: 10-31-2021 Vasectomy Mart Mercado Start: 12-10-2020 Open reduction of fr acture of ankle with internal fixation Mart MAN [facility] Contraception care education Sadaf Jcarlos Other Tonsillectomy Mart MAN [facility] Immunizations Immunization Date Immunization Notes Care Provider Fa cility 11-25-2020 SARS-CoV-2 (COVID-19 ) Ad26 vaccine, recombinant Mart E la Carte [facility] [place] Payers Date Payer Category Payer Unknown [id number] 1957 Unknown [id number] Self-pay Self Pay [id number] Unknown [id number] Social History Date Type Detail Facility Tobacco Unknown if ever smoked [facility] Comment on above: denies Sex Assigned At Male [facility] Start: 1990 Sex Assigned At Male F [facility] Medical Equipment Procedure Code Equipment Code Equipment [...] Notes Jul, Adult ADHD (ICD-10 - F90.9) [facility] Other 12-27-2023 Evaluation note* Encounter Date Diagnosis Assessment Notes Treatment Notes Treatment Clinical Notes Jun, Adult ADHD (ICD-10 - F90.9) [facility] Other 11-03-2023 Evaluation note* Encounter Date Diagnosis Assessment Notes Treatment Notes Treatment Clinical Notes May, Adult ADHD (ICD-10 - F90.9) [facility] Other 10-26-2023 Evaluation note* Encounter Date Diagnosis Assessment Notes Treatment Notes Treatment Clinical Notes Apr, Adult ADHD (ICD-10 - F90.9) [facility] Other 10-03-2023 Evaluation note* Encounter Date Diagnosis Assessment Notes Treatment Notes Treatment Clinical Notes Apr, Adult ADHD (ICD-10 - F90.9) [facility] Other 10-02-2023 Evaluation note* Encounter Date Diagnosis Assessment Notes Treatment Notes Treatment Clinical Notes Apr, Adult ADHD (ICD-10 - F90.9) [facility] Other 08-14-2023 Evaluation note* Encounter Date Diagnosis Assessment Notes Treatment Notes Treatment Clinical Notes Feb, Adult ADHD (ICD-10 - F90.9) Pt denies adverse side effects. He filled the 30mg dose last week. agrees to increase to 50mg in 2-3 weeks and monitor results. He had a lot of positive effects initially and agrees to continue same med. [facility] Other 07-11-2023 Evaluation note* Encounter Date Diagnosis [...] immediately. Understands it is a controlled substance. 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 [facility] Other 04-25-2022 Evaluation + Plan note Diagnostic Tests Pending * Semen Analysis Post Vasectomy 11/18/21 * Semen Analysis Post Vasectomy 11/19/21 [facility] 04-25-2022 Hospital Discharge instructions Patient Education [...] 06/30/2017 Document Revised: 11/04/2019 Document Reviewed: 06/30/2017 [employer] Patient Education 2019 [employer] Follow Up Care 10/10/2021 10:51:54 With:JULIAN PIERRE, Mart Mcbride, URL Address: [address] [place] [id number]- When: only if needed [facility] 04-07-2022 Hospital Discharge instructions Patient Education 10/31/2021 [...] Follow these instructions at home: Medicines Take axqy-jqi-zerqiov and prescription medicines only as told by [...] 01/30/2006 Document Revised: 06/25/2018 Document Reviewed: 10/09/2017 [employer] Patient Education 2020 [employer]. Follow Up Care 10/11/2021 13:55:26 With:JULIAN PIERRE, Mart Mcbride, URL Address: [address] [place] [id number] [phone] When: Unknown [facility] 03-17-2022 NoteChief Complaint Pt is here for [...] Information JULIAN PIERRE, Mart Mcbride, URL [address] [place] [id number] Additional Instructions: schedule vasectomy Patient Education Vasectomy, [...] mg= 2 cap(s), (more content not included)... [facility] Comment: Electronically Signed By: Mart MAN MD\.br\Date and Time Signed: 10/10/21 10:33 EDT\.br\Electronically Co-Signed By: Daiana Kong MA\.br\Date and Time Co- Signed: 10/10/21 10:31 [id number] History general Narrative - Reported* Type Description Date Surgical History T & A 1997 Surgical History Right leg surgery, broke bone [facility] Other 05-01-2021 History general Narrative - Reported* Type Description Date Surgical History T & A 1997 Surgical History Right leg surgery, broke bone Hospitalization History SEE SURGICAL HX [facility] Other 01-31-2021 NoteHNO ID: [id number] Author: Savannah Marte (Tech) Service: ? Author Type: Hospitality Coordinator Type: Progress Notes Filed: 08/26/2020 9:36 AM Note Text: [place] for IUI. [facility] + Plan note Future Appointments Appointment Date:11/18/2021 09:45:00 AM Scheduled Provider:Mart MAN MD Location:[facility] Appointment Type:URO Office Visit [facility] Evaluation noteNo assessment information available [facility] Work Phone: Evaluation noteNo InformationNort [email or web address] Other History general Narrative - ReportedNocox [email or web address] Other Hospital course Narrative No data available for this section [facility] Hospital Discharge instructions No data available for this section [facility] Summary Purpose Family History No Family History [...] Tree nut allergy (Z9 1.018) Referral Organization [facility] Referring Provider First Name Sadaf Referring Provider Last Name Jcarlos Referring Provider Specialty Family Medi cine Referred Organization [facility] Referred Provider Adrian Armstrong Referred Address ,[place], [place],[address] Referred Provider Specialty Allergy/Immu nology Referral Priority Routine Additional Source Comments (unrecognized sect ion and content) No Status Records FoundNo Status Records FoundNo Status Records FoundNo Status Records Found INFORMATION SOURCE (unrecogn ized section and content) DATE CREATED AUTHOR 07/03/2021 [facility] DATE CREATED AUTHOR AUTHOR'S ORGANIZ ATION 08/22/2021 [facility] DATE CREATED AUTHOR AUTHOR'S ORGANIZ ATION 02/04/2022 [facility] DATE CREATED AUTHOR AUTHOR'S ORGANIZ ATION 02/11/2022 [facility] Care Teams (unrecognized sec tion and [...] BE BASED ON THE PRIMARY CLINICAL RECORDS. [employer] [facility] provides no warranty or guarantee of the accuracy or completeness of information in this document.
== END 2024-02-10 08:50 | disposition home or self-care (01) ==
PROVIDERS: PCP Family Medicine; Visit Provider Internal Medicine
DX: N62 Hypertrophy of breast (principal); N64.3 Galactorrhea not associated with childbirth
CPT/HCPCS: 70553; A9575

== ENCOUNTER 2024-03-31 08:26 | Outpatient (OUT) | payer BC, SELFPAY ==
--- OUTSIDE RECORDS SUMMARY | 2024-03-31 08:31 | XMS_ITS | CCD ---
Author Organization [facility] Care Team Providers Care [employer] Professor Name Role Phone DR CATARINA DOCTOR Admitting Unavailable DR VINAYAK ELMORE Attending Unavailable SADAF NATH Primary Care Physician MD Sadaf Nath Primary Care Provider MD Mart Man Attending Provider [phone] Sadaf Nath Unavailable Allergies Allergy Classification Reported Allergen(s) Allergy Type Date of Onset Reaction(s) Facility (15 sources) Amoxicillin; Translations: [amoxicillin] Drug Allergy [facility] Time To Cater (3 sources) Penicillins; Translations: [penicillins] Drug allergy [facility] Time To Cater (12 sources) tree nut, unspecified Drug allergy Anaphylaxis, Unknown [facility] Time To Cater (12 sources) Penicillin Drug Allergy hives [facility] Other (9 sources) Pseudoephedrine Drug Allergy Unknown [address] [facility] [place] Other (9 sources) Morphine Sulfate-NaCl Drug allergy Comment:Throat Swelling [facility] [place] Other Medications Current Medications Medication Drug Class(es) [...] day(s), # 10 cap(s), Refills(s) 0, [id number] 190, cm, 10/31/21 10:54:00 EDT, Height/Length Dosing, 148, kg, 10/31/21 10:54:00 EDT, Weight Dosing Start Date: 10/31/21 Stop Date: 11/05/21 Status: Ordered docusate sodium 100 mg oral capsule (3 sources) Start: 12-10-2020 take 1 capsule by mouth twice daily Colace 100 mg Cap 100 mg = 1 cap(s), Oral, BID, # 60 cap(s), Refills(s) 0, [id number], 183, cm, 12/10/20 7:06:00 [...] Active Start: 07-23-[address] [facility] every twenty-four hours Vyvanse 50 MG 1 capsule in the morning Orally Once a day for 30 days Jun, Active Start: 05-29-2023 take 1 capsule by [facility] every twenty-four hours Vyvanse 50 MG 1 capsule in the morning Orally Once a day for 30 days May, Active Start: 05-21-2023 take 1 capsule by [facility] every twenty-four hours Vyvanse 50 MG 1 capsule in the morning Orally Once a day for 30 days Apr, Active Start: 04-27-[address] [facility] every twenty-four hours Vyvanse 50 MG 1 [...] q6hr, # 20 tab(s), Refills(s) 0, Pharmacy: [facility]/pharmacy #[id number], 183, cm, 12/10/20 7:06:00 [...] Facil ity Lab Reportson 02-03-2022 Lab Reports [id number] 0CD:[id number] Normal Ak[facility] Semen Analysis, Post Vasecto myon 01-25-2022 Semen Analysis, Post Vasectomy Few Nonmotile Sperm Normal None Seen [facility] Comment on above: Performed By: #### S EMPOST #### [address] Result Comment: PERF ORMED BY: [place] [address] PATHOLOGIST MATERIAL HANDLER LOADER TOO SLOAN M.D. Semen analysis post vasectom y panelOrdered By: Mart Man on 01-25-2022 Semen analysis p vasectomy panel (Merari) Few nonmotile sperm None Seen [facility] Ambulatory Visit Summaryon 0 11-18-2021 Ambulatory Visit [...] RADHA Mckeon When: Only if needed Where: [address] [place], [place] [id number]- Medications What How Much When Why Instructions [...] An infecte (more content not included)... Normal [facility] Patient Educationon 11-18- 22 Patient Education [...] sharing needles or (more content not included)... [facility] Urology Office/Clinic Noteon 11-18-2021 Urology Office/Clinic [...] PIERRE, Mart Mcbride, URL Only if needed [address] [place] [address]- Additional Instructions: Patient Education Preventing HIV Infection [...] Diagnostic Results Tests Reviewed: Reviewed UA. Neel [facility] Comment on above: Result Comment: Elec tronically Signed By: Mart MAN MD\.br\Date and Time Signed: 11/18/21 10:47 EDT\.br\Electronically Co-Signed By: Ramo Yap\.br\Date and Time Co-Signed: 11/18/21 10:33 EDT Coding Summary.on 11-07-2021 Coding Summary. [id number] Gh 0bWw+PGhlYWQ+QC7JJZKpS 67ftUEjyP0DZ6oDTM7TJFZ JKFWTOV6NUA6ijLA3BWliI 2VybiAv LseivOZaLP47GLj1GTH9dL teBFpvtQ0bqZTiN1j1GrGb BF83bW60GXceRGYoSfT8Vf ZpbjsgbWFy Q6jiEyOhpHRaPha+PHRhYm xlIHdpZHRoPScxMDAlJyBz vQqvBB8jIi8hXSUnUIGipC xhcHNlOiBj j2uaUTEaJTvxTR6ogMncB3 AauQZ5ALOxf8o9Ub60mCP+ NEJvOEG7cWriKOcya149Vo Zpl2qxLYN2 rYNqHOrbOPC4T03es2X3IA DnVSRfXYG7lNN7cX3usTwo vfeaE7GcqFLcFeV8IMC6bY VyrW8ziYow yhkyfK9tPcs+Y47BKN1GMG IOGT9WYou0B1EsHplhbMC+ WI74HNGrGM83oDWmtFLil7 ffbCa3KzWe SHMrZGI4sRhsUBccd3WfNX WxB63szXPfp7F0WHUhsSrc gVMhEcIqwAK5kB6tREhuxt rkj3cphoae Zfrde2wvum75rV10Z63eCB jgWKAyCJW7WRRnYPWirGkq vt3bxM2jMs4+DDjhl4frg5 fdvWj2FqQn ROWggpCwkEyyJBE6x9IdEa 91O2FnlUgzh1OwRbj3nc16 fBDzm5P3vCX0GOyiFABpsX 7yHMjuUlG1 RJDdPjZrkG76jQHaOWtuQb 8afQjbrCipFB4pQASvfhvh AWMbiK8aJHYsfOCcwDedAM 4wNTBpbjtm q516XwYhHWY0PGAlyMFmO8 QbkO4uTxVyUSXwDUJoE0Jr gHBoMIjoT380VPspMvA3LV HaajTiW1Ps JNVpbBopQbC4q3E2Pm2Nb1 DfheygPUI1JHvmAMW3JrI4 WyIoWfQ3D8XnHrn4JNFtfQ txRI8hQ4Zl YCRxpupnxdvjvUP7XXRpVJ BvhT33sRKgHDefXc5lx6Y1 j024WONyLQLagO53Ko2pyT ogMTBwdCBU uF1dsmmpi9mxbunmBrAeDT IuLRm8ATp3NNYeyFtrAgZd OIW0ViZ5JHM4nLSdyD1fiZ utgzdvzZ5b Oyc+H79nsM7jLWP8JQQ3qj mlSZEasxJtRG63TW09X9Hu PjwvdGFibGU+PGRpdiBzdH yhAT5wSaLq p6umz6BiMWceE9GqKHJaUH kjJsq3WHYlPHY5qNP9xL2z WSSfOBrwq5P7oPR0P2Sriv Dokf7lh0sd YQSlZVcsO21cbXZus4V5VF JivHS0RTBieBcnNaJrgZ55 Oyc+IEVgkVnxd9UcRgeie0 aej6wxgOi5 UbWnXHQpznSjnXzpZFD2u1 IaPx01O21hQOyzOQHaUWXu KUKtJHOclPftty9elI0yYs 8+PGNvbCB3 uON4yM4dJFAhGvL4QXupJ5 47FwOjnFVmGzyld9ujk1gq gGs6IeBzIOKxrfLwgWqzAY G8k8ViCc13 M41pSOnlSQMkZYQuLKXkAE TxhItavi3baN3mCt1+PC9j w6qaby64aX87tUT+PHRkIH A4iIqzPHsf GNOluM7zSYkuIrD9KRQcRg GhuZ02pEVtBLlbMq9ajLvk cFtdBB1mPHJvqeahq377Te Crs7mnKKWu eYVhVTawIYW0S91bi3A0BY UlMWPgYVJ6bGK4eS6ucHpv bjogbGVmdDsgdmVydGljYW fzORysU561 IHRvcDsnPlBhdGllbnQgTm JnQNr5M8UiXtf5YOZtzXdz PB0fxZTfNBryMr7vrIqfcF osBU2vUCUy jzony493IvBds5ytXVUgwN HrBRdfRFK8A24sh0N4VZNw WPTuKTW2sIZ9vL9ltJwdem ogbGVmdDsg pyLluPneMTdjEQjuT211DL RvcDsnPkJpcnRoIERhdGU6 YL14IY22wOUxh5M4aGU1J7 BhZGRpbmct vskeoLK2WRSjIPQjsE12Fr 0xeSehRn1tNZAaAOP4FDPx fAVpK1NiwE3yEtVwLNYpFD IvX8ZxyERg EXrlX069HWssXzX8UYDdmq BgK3WrAPZbyZcdHhC6j7W3 Jc1UJ3C7JO72TV59cXPzk1 L6zHG1C6Mx PWOucjpokpmxfAK4IERuEE TbtC37Xn4ouZqyLo1zKTBx TGM4CZGtvPGxT2YrmX1sNb AjMDAwMDAw H6NipJXlCAfcA251PStePl H3CNPiuzXhR3XvZFJbmUlq CvG9a3J1Si1YFCz9HC05YE 46jYDhi6X7 lMQ0F6MbOQSsehfylpyktP V3VHDnNWFqvK82As4vdSje Qf2lLMXjPEY8XJJcqZEiU9 WkmS7jAkZu CWKzVXClF8VlzJHiOUbkW8 71ZXiaHoD4SGIfzjAzE5Jx HPHyjIqgGoH0b7D8Kt7AMA BgIK20JTA7 hEK3CI52PO92B0UeFjvrnU FibGU+PHRhYmxlIHdpZHRo QKmsGLWxQhLbtRloRA3nDi 9yZGVyLWNv eKgztIPcYjIok9diSTUfKZ rfTT4mbRfkS1JmsCN5AXTm c8s8Nh86F66sW3PnfRV+PG BclOH7cIB1 sP0oFsNlEiC6YFdpC745Tv LjuBNhEsznr6ljy0cpvHo5 LrI0IEPeylYnlNogRAZ4a6 EfOs45R47j IHdpZHRoPSIxNSUiIHZhbG joim7axW4rHn7+PGNvbCB3 nVQ7vV7uEvYzLjP0FQiqW1 49InRvcCIv Hfdqi6cze9vecPq4OiHxAJ TxdoNafObqECF8d1UkYs48 I9JtfPygn6FiNsi6zy27yD Wzc3A4bLG5 C1PfMCQsqmebeMRsuHvcCQ 7tLLHpwanmVCYkrE0nUYOt Z8b4AwXuRsC8CZyiN7Ikaj P6CHTcuUAy IJsaNNL8B24oy6Y0ECMtNE QdOVM6yLX1gF8fgUnyabae bGVmdDsgdmVydGljYWwtYW kfN189QXMn mCppGEXazZ8mWMHneGVtfA mhCY1tXXJhlevoNaWLLJDX MJKKL6tCOxRPVK1GWorydO Q+PHRkIHN0 oVrmNHskPQDotV3nVWChL6 v5FeXqAaQ8MDizN0WhSHCv hltnOa97qU6iRzQtOlU8MJ gjS6BmusZ3 DJGgfTOgFJapVNB7D34iq2 E6JWXcDFOcBQE2mUA3iZ7s bGlnbjogbGVmdDsgdmVydG ljYWwtYWxp R730XIHxfEsoZqG7LiR9Nf A5EFD1N5OwKel1TBPmhQvy EO8bgWWlHCikLl2sxFqhrA hcWE4uCRXf ldkpCPBtzV0dWAKklIKqjE aqPW5rDGChfxohz858KfWp RWD9XMEjfSNgA6MeeX1sPt AjMDAwMDAw V9OleJYuUNdwX372WUkaVu Z1SQZohcRaS5WmZRXilDtj LmN1d6Y9Pk3cTBWGMSPiio wvdGQ+PHRk CZT1dCbjNLheRGVdtT9tWZ AoW4a4TeKdVmG4KFfiD4Lg YCJtunhnSh29pX0nZrJkKv A0DOlpS4Bw kbV0LGFbxNMbVGocURN9T4 3jp1S7VHPxGUSkAQG5qZP9 eK0tiBhjautvkQPqjEsizf VydGljYWwt FCbwL968TRLjvWpcDe2uuX P5Y8KmSdw5SXJpoYpgMQ4q aBYhFRaxEu2ibMemxCfnJP 4wNTBpbjtw CHPdpW1nIBZsvNMyfAluEB 1nBXGdzjjzk911NeIpUME1 BOIfbQOkK4IviL9uClRnKL DbSWXkB7My nVOlTJnfE289KHlzJiQ9YO OgpvQjZ4EaHROijEygEhP6 n3D3Hr5VHUZcJNOreZMxDi D8A1BvNhqj dHI+YE04OCUaYW94qNIajE Cfz2rarFv5ZxXlNRLeNDP6 uTwkUUyex2SgXBVzY39wwE Vik6P6TOMr qRrwoAZiAgQttZA0cD5lBS xlckxta1hgmsssDqcww2as je86hG55S29iRZayVBBaNH IzMCUiIHZh dZqhiv5slG8xBy9+PGNvbC L6wEI2wX0yNnJbEuV5WHoq V979LxUfhZSsJskjc7mjp6 flfBi1MfZp KUUgwgHqvTwtZEZ7u9SeJq 34Q04aLRtqNCHeJTGtGRNz FOHohJkwgw0zzO0oFf3+PC 5tw9xnav96 bW93cYZ+XHDjFMK6zDivQF aaLDYjdE2cUFqaFgM0MQUf ObXskH74jZKgFVovWy7rfW durWwzDX3x USApffzce834CiOkc7hfDH KpjFFsATxbXZC0K22uo3N7 ZNYcRPTbLMD1oNF7rU4qqY lnbjogbGVm dDsgdmVydGljYWwtYWxpZ2 77QKWaiGhmUdHrpICwB7qq grWGNE0wQmzblPX+PHRkIH L6zGbxKKob FRKdqF7jQVNkS5l2ZeJbOs M4VIzgT5JahjT4IAMbnUMt ZILmtBRZzZ4etebtw5xqyi ogIzAwMDAw QFi1QSn9HAMrcUttTdKcOX X7CyW9HDB7xTVqmS1woYqz kupmeJ0pUvv+RklOOjwvdG Q+PHRkIHN0 zUdzPOjuMWNmmX6vBVIfZ7 t4ZzNoZnM8KAuoO0TsgsD2 ZCDuhQOnPALosPRDdM8cpr aem4lvzvig ZuGeCOUtUZg7KRk0PBQbsL uuJwPdRWN3CeP5XHB2jBDr gA7ogVwqccsihQ4gPoe+TV JOOjwvdGQ+ KMQbJDK5tEpiQWqoKQHvqG 9oBYAoO8i5CsZdFsL1HNnq Y1WvazY1WUJyaDUbBSWecK HXuD2opthl p1ckhkvvFgRxJMKkJCe2WU w7ELAgpUdiGbPhVUC9HxX5 DAX6mYZjvX1beTalndnjxL 9wOyc+UGF5 JIK2KC13BP52Y1BnPtwdyX FibGU+PHRhYmxlIHdpZHRo JVaoPARoViGsaVitQB6eSc 9yZGVyLWNv bGxh (more content not included)... Normal [facility] Consent for Procedure/Surger yon 11-01-2021 Consent for Procedure/Surgery [id number]:127 Normal [facility] Patient Educationon 11-01-19 22 Patient Education [...] these instructions at home: Medicines ? Take ihqr-pap-gbjsygm and prescription medicines only as told by [...] 01/30/2006 Document Revised: 06/25/2018 Document Reviewed: 10/09/2017 [employer] Patient Education ? 2019 [employer] [facility] Urology Office/Clinic Noteon 10-31-2021 Urology Office/Clinic Note [...] Information JULIAN PIERRE, Mart Mcbride, URL [address] [place] [phone] Additional Instructions: Patient Education Vasectomy, Care After [...] SARS-CoV-2 (COVID-19) Ad26 vaccine 11/25/2020 Recorded Normal [facility] Comment on above: Result Comment: Elec tronically Signed By: Mart MAN MD\.br\Date and Time Signed: 10/31/21 12:06 EDT\.br\Electronically Co-Signed By: Rafaela Madrigal MA\.br\Date and Time Co-Signed: 10/31/21 11:29 EDT Pre-Authorization for Medica l Treatmenton 10-15-2021 Pre-Authorization for Medical Treatment [id number]:127 Normal [facility] Ambulatory Visit Summaryon 0 10-10-2021 Ambulatory [...] RADHA Mckeon When: Why: schedule vasectomy Where: [address] [place] [id number] Medications What How Much When Why Instructions [...] these instructions at home: Medicines ? Take lyyz-xub-wowanyu and prescription medicines only as told by [...] these instructions at home: Medicines ? Take stgt-cuw-lolqkhi and prescription medicines only as told by [...] 01/30/2006 Document Revised: 06/25/2018 Document Reviewed: 10/09/2017 [employer] Patient Education ? 2019 [employer] [facility] Qing 08-26-2020 CNOV Office Visit (ANDRBE ) MELLO ARCHER ([id number]) 1990 M Date Time Provider Department 08/26/20 8:00 AM ANDROLOGY CAR SCRUBBERSAVANNAH JEAN BAPTISTE During your visit today, we recorded the following information about you: Savannah Marte Tech 08/26/2020 9:36 AM Signed Semen wash for IUI. Savannah Marte Referring Provider: SELF [200] Allergies As of Date: 08/26/2020 (Not on File) Date Reviewed: Never Reviewed Primary Visit Diagnosis:Procreative management [Z31.9] Problem List As Of Date: 08/26/2020 (None) Encounter Status:Closed by AWAIS OCONNOR on 08/26/20 Normal [facility] Vital Signs Date Time Vital Sign Value Performing Clinician Facility 03-09-2023 10:15-0400 Body height 185.42 cm Sadaf Nath Other [facility] Other 03-09-2023 10:15-0400 Body mass index (BMI) [Ratio] 42.48 kg/m2 Sadaf Nath Other [facility] Other 03-09-2023 10:15-0400 Body weight 146.06 kg Sadaf Nath Other [facility] Other 03-09-2023 10:15-0400 Diastolic blood pressure 89 mm[Hg] Sadaf Nath Other [facility] Other 03-09-2023 10:15-0400 Systolic blood pressure 136 mm[Hg] Sadaf Nath Other [facility] Other 02-03-2023 11:30-0400 Body height 185.42 cm Sadaf Nath Other [facility] Other 02-03-2023 11:30-0400 Body mass index (BMI) [Ratio] 42.87 kg/m2 Sadaf Nath Other [facility] Other 02-03-2023 11:30-0400 Body weight 147.42 kg Sadaf Nath Other [facility] Other 02-03-2023 11:30-0400 Diastolic blood pressure 86 mm[Hg] Sadaf Nath Other [facility] Other 02-03-2023 11:30-0400 Systolic blood pressure 119 mm[Hg] Sadaf Nath Other [facility] Other 01-19-2023 13:00-0400 Body height 185.42 cm Sadaf Nath Other [facility] Other 01-19-2023 13:00-0400 Body mass index (BMI) [Ratio] 42.87 kg/m2 Sadaf Nath Other [facility] Other 01-19-2023 13:00-0400 Body weight 147.42 kg Sadaf Nath Other [facility] Other 01-19-2023 13:00-0400 Diastolic blood pressure 93 mm[Hg] Sadaf Nath Other [facility] Other 01-19-2023 13:00-0400 Systolic blood pressure 141 mm[Hg] Sadaf Nath Other [facility] Other 10-31-2021 10:42-0400 Blood Pressure Location Mart RICE [facility] [place] 10-31-2021 10:42-0400 Diastolic blood pressure 93 mm[Hg] Mart RICE [facility] [place] [facility] 10-31-2021 10:42-0400 Heart rate 75 /min Mart MAN [facility] [place] [facility] 10-31-2021 10:42-0400 Systolic blood pressure 142 mm[Hg] Mart MAN [facility] [place] [facility] Encounters Encounter Date Encounter Type Care Provider Facility Start: 08-24-2023 End: 08-24-2023 ambulatory Sadaf Nath Other [facility] Other Start: 08-24-2023 Telephone encounter Sadaf Jcarlos [facility] Start: 07-22-2023 End: 07-22-2023 ambulatory Sadaf Nath Other [facility] Other Start: 07-22-2023 Telephone encounter Sadaf Jcarlos [facility] Start: 05-29-2023 End: 05-29-2023 ambulatory Sadaf Nath Other [facility] Other Start: 05-29-2023 Telephone encounter Sadaf Jcarlos [facility] Start: 05-21-2023 End: 05-21-2023 ambulatory Sadaf Nath Other [facility] Other Start: 05-21-2023 Telephone encounter Sadaf Jcarlos [facility] Start: 04-28-2023 End: 04-28-2023 ambulatory Sadaf Jcarlos Other [facility] Other Start: 04-28-2023 Telephone encounter Sadaf Jcarlos [facility] Start: 04-27-2023 End: 04-27-2023 ambulatory Sadaf Nath Other [facility] Other Start: 04-27-2023 Telephone encounter Sadaf Jcarlos [facility] Start: 03-09-2023 End: 03-09-2023 ambulatory Sadaf Jcarlos Other [facility] Other Start: 03-09-2023 Office outpatient vi sit 15 minutes Sadaf Jcarlos [facility] Start: 03-02-2023 End: 03-02-2023 ambulatory Sadaf Nath Other [facility] Other Start: 03-02-2023 Telephone encounter Sadaf Jcarlos [facility] Start: 02-03-2023 End: 02-03-2023 ambulatory Sadaf Nath Other [facility] Other Start: 02-03-2023 Office outpatient vi sit 15 minutes Sadaf Jcarlos [facility] Start: 02-03-2023 Telephone encounter Sadaf Jcarlos [facility] Start: 01-19-2023 End: 01-19-2023 ambulatory Sadaf Jcarlos Other [facility] Other Start: 01-19-2023 Encounter for genera l adult medical examination without abnormal findings Sadaf Nath [facility] Start: 01-19-2023 Periodic preventive med est patient 18-39 yrs Sadaf Jcarlos [facility] Start: 01-25-2022 End: 01-25-2022 Patient encounter procedure MD Sadaf Nath Work Phone: [facility] [place] Start: 11-18-2021 End: 11-18-2021 Patient encounter procedure Mart MAN [facility] [place] Start: 10-31-2021 End: 10-31-2021 Lab Drop off Mart MAN [facility] Start: 10-31-2021 End: 10-31-2021 Patient encounter procedure Mart MAN [facility] Start: 08-22-2021 Adult health examination Sadaf Jcarlos Other [facility] Other Start: 08-22-2021 Encounter for genera l adult medical examination without abnormal findings Sadaf Jcarlos Other [facility] Other Start: 02-05-2021 End: 05-01-[address] LICEA [facility] Facility:H1 Procedures Date Procedure Procedure Detail Performing Clinician Start: 11-18-2021 H/O: vasectomy Mart MAN Start: 10-31-2021 Vasectomy Mart Mercado Start: 12-10-2020 Open reduction of fr acture of ankle with internal fixation Mart MAN [facility] Contraception care education Sadaf Jcarlos Other Tonsillectomy Mart MAN [facility] Immunizations Immunization Date Immunization Notes Care Provider Fa cility 11-25-2020 SARS-CoV-2 (COVID-19 ) Ad26 vaccine, recombinant Mart [employer] [facility] [employer] Payers Date Payer Category Payer Unknown [id number] 1957 Unknown [id number] Self-pay Self Pay [id number] Unknown [id number] Social History Date Type Detail Facility Tobacco Unknown if ever smoked [facility] Comment on above: denies Sex Assigned At Male [facility] [employer] Start: 1990 Sex Assigned At Male F [facility] Medical Equipment Procedure Code Equipment Code [...] Notes Jul, Adult ADHD (ICD-10 - F90.9) [facility] Other 12-27-2023 Evaluation note* Encounter Date Diagnosis Assessment Notes Treatment Notes Treatment Clinical Notes Jun, Adult ADHD (ICD-10 - F90.9) [facility] Other 11-03-2023 Evaluation note* Encounter Date Diagnosis Assessment Notes Treatment Notes Treatment Clinical Notes May, Adult ADHD (ICD-10 - F90.9) [facility] Other 10-26-2023 Evaluation note* Encounter Date Diagnosis Assessment Notes Treatment Notes Treatment Clinical Notes Apr, Adult ADHD (ICD-10 - F90.9) [facility] Other 10-03-2023 Evaluation note* Encounter Date Diagnosis Assessment Notes Treatment Notes Treatment Clinical Notes Apr, Adult ADHD (ICD-10 - F90.9) [facility] Other 10-02-2023 Evaluation note* Encounter Date Diagnosis Assessment Notes Treatment Notes Treatment Clinical Notes Apr, Adult ADHD (ICD-10 - F90.9) [facility] Other 08-14-2023 Evaluation note* Encounter Date Diagnosis Assessment Notes Treatment Notes Treatment Clinical Notes Feb, Adult ADHD (ICD-10 - F90.9) Pt denies adverse side effects. He filled the 30mg dose last week. agrees to increase to 50mg in 2-3 weeks and monitor results. He had a lot of positive effects initially and agrees to continue same med. [facility] Other 07-11-2023 Evaluation note* Encounter Date Diagnosis [...] immediately. Understands it is a controlled substance. 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 [facility] Other 04-25-2022 Evaluation + Plan note Diagnostic Tests Pending * Semen Analysis Post Vasectomy 11/18/21 * Semen Analysis Post Vasectomy 11/19/21 [facility] [place] 04-25-2022 Hospital Discharge instructions [...] 06/30/2017 Document Revised: 11/04/2019 Document Reviewed: 06/30/2017 [employer] Patient Education 2019 [employer] Follow Up Care 10/10/2021 10:51:54 With:JULIAN PIERRE, Mart Mcbride, URL Address: [address] [place] [address]- When: only if needed [facility] 04-07-2022 Hospital Discharge instructions Patient [...] Follow these instructions at home: Medicines Take xixd-rdy-xlrqzen and prescription medicines only as told by [...] 01/30/2006 Document Revised: 06/25/2018 Document Reviewed: 10/09/2017 [employer] Patient Education 2020 [employer]. Follow Up Care 10/11/2021 13:55:26 With:JULIAN PIERRE, Mart Mcbride, URL Address: [address] [place] [id number] [phone] When: Unknown [facility] 03-17-2022 NoteChief Complaint Pt is [...] Information JULIAN PIERRE, Mart Mcbride, URL [address] [place] [phone] Additional Instructions: schedule vasectomy Patient Education Vasectomy, [...] mg= 2 cap(s), (more content not included)... [facility] Comment: Electronically Signed By: Mart MAN MD\.br\Date and Time Signed: 10/10/21 10:33 EDT\.br\Electronically Co-Signed By: Daiana Kong MA\.br\Date and Time Co- Signed: 10/10/21 10:31 [id number] History general Narrative - Reported* Type Description Date Surgical History T & A 1997 Surgical History Right leg surgery, broke bone [facility] Other 05-01-2021 History general Narrative - Reported* Type Description Date Surgical History T & A 1997 Surgical History Right leg surgery, broke bone Hospitalization History SEE SURGICAL HX [facility] Other 01-31-2021 NoteHNO ID: [id number] Author: Savannah Marte (Tech) Service: ? Author Type: Supervisor Belt And Link Assembly Type: Progress Notes Filed: 08/26/2020 9:36 AM Note Text: Semen wash for IUI. [facility]Martin [facility] HospitalvelandEvaluation + Plan note Future Appointments Appointment Date:11/18/2021 09:45:00 AM Scheduled Provider:Mart MAN MD Location:[facility] Appointment Type:URO Office Visit [facility] Evaluation noteNo assessment information available [facility] Work Phone: Evaluation noteNo InformationNort [employer] Other History general [facility] - [facility] [employer] Other Hospital course Narrative No data available for this section [facility] Hospital Discharge instructions No data available for this section [facility] Summary Purpose Family History No Family [...] allergy (Z9 1.018) Referral Organization [facility] Referring Provider First Name Sadaf Referring Provider Last Name Jcarlos Referring Provider Specialty Family Medi cine Referred Organization [facility] Referred Provider Adrian Armstrong Referred Address ,[place], [place],[address] Referred Provider Specialty Allergy/Immu nology Referral Priority Routine Additional Source Comments (unrecognized sect ion and content) No Status Records FoundNo Status Records FoundNo Status Records FoundNo Status Records Found INFORMATION SOURCE (unrecogn ized section and content) DATE CREATED AUTHOR 07/03/2021 [facility] DATE CREATED AUTHOR AUTHOR'S ORGANIZ ATION 08/22/2021 [facility] DATE CREATED AUTHOR AUTHOR'S ORGANIZ ATION 02/04/2022 [facility] DATE CREATED AUTHOR AUTHOR'S ORGANIZ ATION 02/11/2022 [facility] Care Teams (unrecognized sec tion and content) [...] BE BASED ON THE PRIMARY CLINICAL RECORDS. [employer] [facility]. provides no warranty or guarantee of the accuracy or completeness of information in this document.
[2024-03-31 08:51] LABS: Hemoglobin 14.4 g/dL (14.0-18.0)
[2024-04-01 12:09] LABS: Testosterone 140 ng/dL (264-916)
== END 2024-03-31 08:27 | disposition home or self-care (01) ==
LOC: LAB 08:28
PROVIDERS: PCP Family Medicine; Visit Provider Internal Medicine
DX: E22.1 Hyperprolactinemia (principal); N62 Hypertrophy of breast
CPT/HCPCS: 36415; 84146; 84153; 84403; 85018

== ENCOUNTER 2024-07-18 08:17 | Outpatient (OUT) | payer BC, SELFPAY ==
--- OUTSIDE RECORDS SUMMARY | 2024-07-18 08:28 | XMS_ITS | CCD ---
Author Organization [facility] Care Team Providers Care Hospital Unit Clerk Name Role Phone DR VINAYAK ELMORE Admitting Unavailable DR VINAYAK ELMORE Attending Unavailable SADAF NATH Primary Care Physician [phone] MD Sadaf Nath Primary Care Provider MD Mart Man Attending Provider Sadaf Nath Unavailable Sadaf Nath MD Primary Care Provider Allergies Allergy Classification Reported Allergen(s) Allergy Type Date of Onset Reaction(s) Facility (18 sources) Amoxicillin; Translations: [amoxicillin] Drug Allergy 04-20-20 23 [facility] (6 sources) Penicillins; Translations: [penicillins] Drug allergy 02-05-20 11 Hives, Other [facility] (12 sources) tree nut, unspecified Drug allergy Anaphylaxis, Unknown [facility] (12 sources) Penicillin Drug Allergy [facility] [employer] Other (9 sources) Pseudoephedrine Drug Allergy Unknown [facility] [employer] Other (9 sources) Morphine Sulfate-NaCl Drug allergy Comment:Throat Swelling [facility] [employer] Other (2 sources) Morphine Drug Allergy 04-21-20 24 Comment:Throat Swelling [facility] (1 source) tree nut, unspecified Allergy to substance 04-21-[address] [facility] (1 source) 12 Hour Decongestant Allergy to substance 12-07-19 [facility] Medications Current Medications Medication Drug Class(es) Dates Sig (Normalized) Sig (Original) acetaminophen 325 mg / oxyCODONE hydrochloride 5 mg oral tablet (3 sources) Opioid Agonist Start: 12-05-2020 Percocet 5 mg-325 mg oral tablet 1 tab(s), Oral, q6hr as needed for pain, 18 tab(s), Refill(s) 0 Start Date: 12/05/20 Status: Ordered 24 hr amphetamine aspartate 5 mg / amphetamine sulfate 5 mg / dextroamphetamine saccharate 5 mg / dextroamphetamine sulfate 5 mg extended release oral capsule (2 sources) Central Nervous System Stimulant Start: 03-09-2024 End: 04-18-2024 take 1 capsule by mouth once daily, then take 1 capsule by mouth every twenty-four hours Dextroamphetamine-Amph etamine (Adderall Xr) 20 mg capsule,extended release 24hr Active 20 MG PO Daily 30 April 18, 2024 bromocriptine 5 mg oral capsule (2 sources) Ergot Derivative Start: 05-06-2024 take 1 capsule by mouth once daily bromocriptine (Parlodel) 5 MG capsule Indications: Hyperprolactinemia (CMS/HCC) TAKE 1 CAPSULE BY MOUTH EVERY DAY 30 capsule 2 05/06/2024 Active Start: 04-21-2024 take 5 mg by mouth o nce daily at mealtime Bromocriptine Active 5 MG PO Daily at bedtime April 21, 2024 12:00am must administer with a meal/food cephalexin 500 mg oral capsule (2 sources) Cephalosporin Antibacterial Start: 10-31-2021 End: 11-05-2021 take 1 capsule by mouth twice daily at mealtime Keflex 500 mg Cap 500 mg = 1 cap(s), Oral, BID, Start with first meal after procedure, X 5 day(s), # 10 cap(s), Refills(s) 0, Pharmacy: [facility]/pharmacy #[id number], 190, cm, 10/31/21 10:54:00 EDT, Height/Length Dosing, 148, kg, 10/31/21 10:54:00 EDT, Weight Dosing Start Date: 10/31/21 Stop Date: 11/05/21 Status: Ordered chondroitin sulfates 200 mg / glucosamine 250 mg oral tablet (2 sources) Start: 12-07-2023 take 1 tablet by mouth once daily Glucosamine-Chondr oitin 250-200 MG tablet Take 1 tablet by mouth Daily 12/07/2023 Active Start: 12-07-2023 take 2 tablets by mo [facility] three times daily at mealtime Glucosamine-Chondroitin (Osteo Bi-Flex) 250-200 mg tablet Active 2 TAB PO Three times daily December 07, 2023 12:00am give after food/meal docusate sodium 100 mg oral capsule (3 sources) Start: 12-10-2020 take 1 capsule by mouth twice daily Colace 100 mg Cap 100 mg = 1 cap(s), Oral, BID, # 60 cap(s), Refills(s) 0, Pharmacy: [facility]/pharmacy #[id number], 183, cm, 12/10/20 7:06:00 EDT, Height/Length Dosing, 143.1, kg, 12/10/20 7:06:00 EDT, Weight Dosing Start Date: 12/10/20 Status: Ordered loratadine 10 mg disintegrating oral tablet (2 sources) take 1 tablet by mouth in the morning loratadine (Claritin Reditabs) 10 MG disintegrating tablet Take 10 mg by mouth in the morning. Active methylPREDNISolone 4 mg oral tablet (1 source) Corticosteroid Start: 01-19-2023 methylPREDNISolone 4 MG as directed Orally for 6 days Dec, Active mupirocin 0.02 mg/mg topical ointment (1 source) RNA Synthetase Inhibitor Antibacterial Start: 12-09-2023 Mupirocin Active 1 APPLIC TOPICAL Twice daily December 09, 2023 12:00am naproxen 500 mg oral tablet (3 sources) Nonsteroidal Anti-inflammatory Drug Start: 12-05-2020 take 1 tablet by mouth twice daily Naprosyn 500 mg Tab 500 mg = 1 tab(s), Oral, BID, # 20 tab(s), Refills(s) 0 Start Date: 12/05/20 Status: Ordered Osteo Bi-Flex Adv Joint Shield (12 sources) Osteo Bi-Flex Ad v Joint Shield Active Syringe/Needle, Disp, (B-D 3CC LUER-SAUL SYR 56LG8-7/2) 23G X 1-1/2 3 ML misc (2 sources) Start: 04-18-2024 End: 07-17-2024 Syringe/Needle, Disp, (B-D 3CC LUER-SAUL SYR [id number]/2) 23G X 1-1/2 3 ML misc Indications: Secondary hypopituitarism (CMS/HCC) Inject 1 Syringe into the shoulder, thigh, or buttocks every 14 (fourteen) days 6 each 04/18/2024 07/17/2024 Active 1 ml testosterone cypionate 200 mg/ml injection (4 sources) Androgen Start: 04-21-2024 inject 200 mg by intramuscular injection every other week Testosterone Cypionate Active 200 MG IM EVERY 2 WEEKS April 21, 2024 12:00am Start: 04-19-2024 End: 10-09-2024 testosterone cypionate (Depo -Testosterone) 200 MG/ML injection Indications: Secondary hypopituitarism (CMS/HCC) Inject 1 mL (200 mg) into the shoulder, thigh, or buttocks every 14 (fourteen) days 6 mL 1 07/11/2024 10/09/2024 Active Zofran ODT 8 mg Tab-Dis (3 sources) Start: 12-10-2020 take 1 tablet by mouth every six hours Zofran ODT 8 mg Tab-Dis 8 mg = 1 tab(s), Oral, q6hr, # 20 tab(s), Refills(s) 0, Pharmacy: [facility]/pharmacy #[id number], 183, cm, 12/10/20 7:06:00 EDT, Height/Length Dosing, 143.1, kg, 12/10/20 7:06:00 EDT, Weight Dosing Start Date: 12/10/20 Status: Ordered Completed/Discontinued Medications Medication Drug Class(es) Dates Sig (Normalized) Sig (Original) B-D 3CC LUER-SAUL SYR 36FY6-9/2 23G X 1-1/2 3 ML misc (1 source) Start: 04-12-2024 End: 04-18-2024 B-D 3CC LUER-SAUL SYR 97GK4-9/2 23G X 1-1/2 3 ML misc Inject 1 Syringe into the shoulder, thigh, or buttocks every 14 (fourteen) days 04/12/2024 04/18/2024 Discontinued (Reorder) lisdexamfetamine dimesylate 50 mg oral capsule (20 sources) Central Nervous System Stimulant Start: 09-23-2023 End: 03-09-2024 take 50 mg by mouth once daily Lisdexamfetamine Discontinued 50 MG PO Daily March 03, 2024 March 09, 2024 10:02am Start: 08-24-2023 take 1 capsule by mo uth every twenty-four hours Vyvanse 50 MG 1 capsule in the morning Orally Once a day for 30 days Jul, Active Start: 07-23-2023 take 1 capsule by mo uth every twenty-four hours Vyvanse 50 MG 1 capsule in the morning Orally Once a day for 30 days Jun, Active Start: 05-29-2023 take 1 capsule by mo uth every twenty-four hours Vyvanse 50 MG 1 capsule in the morning Orally Once a day for 30 days May, Active Start: 05-21-2023 take 1 capsule by mo uth every twenty-four hours Vyvanse 50 MG 1 capsule in the morning Orally Once a day for 30 days Apr, Active Start: 04-27-2023 take 1 capsule by mo uth every twenty-four hours Vyvanse 50 MG 1 capsule in the morning Orally Once a day for 30 days Apr, Active Start: 03-04-2023 take 1 capsule by mo uth every twenty-four hours Vyvanse 50 MG 1 capsule in the morning Orally Once a day for 30 days Feb, Active Start: 02-03-2023 take 1 capsule by mo uth once daily in the morning Vyvanse 30 MG capsule TAKE 1 CAPSULE BY MOUTH EVERY DAY IN THE MORNING FOR 30 DAYS 03/04/2023 Active Problems Active Problems Problem Classification Problem Date Documented Date Episodic/Chronic Allergic reactions (14 sources) Allergy to tree nut; Translations: [Allergy to other foods] Episodic Attention-deficit, conduct, and disruptive behavior disorders (12 sources) Adult attention deficit hyperactivity disorder ; Translations: [Attention-deficit hyperactivity disorder, unspecified type] 09-23-2023 Chronic Attention-deficit, conduct, and disruptive behavior disorders (9 sources) Attention-deficit hyperactivity disorder, unspecified type Chronic Contraceptive and procreative management (6 sources) Sterilization requested; Translations: [Encounter for sterilization] Onset: 10-31-2021 Episodic Fracture of lower limb (3 sources) Fracture of ankle 12-07-2020 Episodic Nonmalignant breast conditions (1 source) Galactorrhea not associated with childbirth; Translations: [Galactorrhea not associated with childbirth] 12-08-2023 Episodic Other endocrine disorders (2 sources) Secondary hypopituitarism; Translations: [Hypopituitarism] 07-11-2024 Chronic Other nutritional; endocrine; and metabolic disorders (8 sources) Body mass index 40+ - severely obese; Translations: [Body mass index (BMI) 40.0-44.9, adult] Chronic Other nutritional; endocrine; and metabolic disorders (1 source) Body mass index (BMI) 40.0-44.9, adult; Translations: [Body mass index (BMI) 40.0-44.9, adult] Chronic Other screening for suspected conditions (not mental disorders or infectious disease) (1 source) Increased prolactin level; Translations: [Other specified abnormal findings of blood chemistry] 12-09-2023 Episodic Unclassified (3 sources) Patient encounter status 10-10-2021 Past or Other Problems Problem Classification Problem Date Documented Date Episodic/Chronic Residual codes; unclassified (4 sources) Other specified postprocedural states; Translations: [OTH SPECIFIED POSTPROCEDURAL STATES] Onset: 02-05-2021 Episodic Results Test Name Value Interpretation Reference Range Facil ity Hemoglobin [Mass/volume] in Bloodon 03-31-2024 Hemoglobin (Bld) [Mass/Vol] 14.4 g/dL 14.0-18.0 [facility] No Panel Informationon 03-31 Prolactin 108.0 ng/mL Abnormal 3.9-22.7 [facility] Comment on above: Performed at: [address] [id number] Director: Herve Shukla PhD, Phone: [phone] Prostate Specific Antigen Total 0.40 ng/mL <=4.00 [facility] Testosterone Level 140 ng/dL Abnormal [id number] [facility] Comment on above: Adult male reference interval is based on a population ofhealthy nonobese males (BMI <30) between 19 and 39 yearsold. myra Ward.al. JCEM 2017,102;9156-9821. PMID:[id number]. Lab Reportson 02-03-2022 Lab Reports [id number] 0CD:127 Normal [facility] Semen Analysis, Post Vasecto myon 01-25-2022 Semen Analysis, Post Vasectomy Few Nonmotile Sperm Normal None Seen [facility] Comment on above: Performed By: #### S EMPOST #### [facility] [address] Result Comment: PERF ORMED BY: [facility] [address] [place] [address] PATHOLOGIST MONITOR CAR OPERATOR TOO SLOAN M.D. Semen analysis post vasectom y panelOrdered By: Mart Man on 01-25-2022 Semen analysis p vasectomy panel (Merari) Few nonmotile sperm None Seen [facility] Ambulatory Visit Summaryon 0 11-18-2021 Ambulatory Visit Summary MELLO VICKERS :1990 Visit Date:11/18/2021 Ambulatory Visit Instructions Your Diagnosis Status post vasectomy Encounter for postvasectomy sperm count Your Care Team Attending Physician - Mart MAN MD Primary Care Physician - SADAF NATH MD [...] Following Appointments Follow Up with JULIAN PIERRE, Mart Mcbride, RADHA When: Only if needed Where: [address] [facility] [address] [place] [id number]- Medications What How Much When Why Instructions [...] An infecte (more content not included)... Normal [facility] Patient Educationon 11-19-19 22 Patient Education Infectious Disease Preventing HIV [...] sharing needles or (more content not included)... Normal [facility] Urology Office/Clinic Noteon 11-18-2021 Urology Office/Clinic Note [...] PIERRE, Mart Mcbride, URL Only if needed [address] [place] [address]- Additional Instructions: Patient Education Preventing HIV Infection and AIDS Ramo Gomez personally scribed for Dr. Man on 11/18/2021 10:31:56. . Documentation recorded by the sivanibRamo camacho, accurately reflects the services(s) I performed and [...] Recorded Diagnostic Results Tests Reviewed: Reviewed UA. Normal [facility] Comment on above: Result Comment: Elec tronically Signed By: Mart MAN MD\.br\Date and Time Signed: 11/18/21 10:47 EDT\.br\Electronically Co-Signed By: Ramo Yap\.br\Date and Time Co-Signed: 11/18/21 10:33 EDT Coding Summary.on 11-07-2021 Coding Summary. [id number] Gh 0bWw+PGhlYWQ+SG9NQCKlG 62sfJUxlJ8UM4pHMG7UFVB EUWXIYV9RRL4eaAB0ROuoR 2VybiAv DoesmWPyXF04DXv3OKY2wX adROpugV7adYUlL8c3ZgNb GZ74yV57AAzcGLCdFkD0Sv ZpbjsgbWFy E9eoMzBupIOdJxu+PHRhYm xlIHdpZHRoPScxMDAlJyBz vTlxOF1uUq3eJCPiQTTvvN xhcHNlOiBj o8soGXKwQAolUQ7heXpqJ1 HtuVA0VXCvu8t2Qm46jBY+ JNGkJIN6eUbnKXkfa858Uf Zck5fpRNR0 xEClWObbHAL0H54im7O1CV ClBGZxIWZ6qKC1pW2nrInr rrbzS9PopJDgToV4HCT1bQ DpjA3tpOcy koklwH6aIdw+O14VKL6XTE UJSU4LRme3O8BmGssxsCX+ LU51CHIvSP39qSTyfKEuv8 negHt1DyKw RBWcSRX2bGkvAReoc4MdYP VoW53kjSCsv3E3XNQkjPty aWZaVsLobZC2yX8uMXmhbw pmq1vcbaiw Elkgl5szkc46lI77Q94pUA ukVDDoMHG3GYMuWQAfrTwh wm1jeT5zNy4+EPphu9dim4 ngbHq8VjNb HJKwnyExoGurXQD0s7GuQs 09E4GsfIylq8MfGyx3mp30 bBUlx4H5oRU5GUohEQTvfX 8tLTcaPcJ5 ICWsSjYqtL36qIUwLZlbCo 8enAhmzKbfWN6qOJXjrjzg ZPFvjK3yBJRjyJTrzMfyKO 4wNTBpbjtm a984OfWkQHV5FPSzkYEuF0 HkeI3gZlRsWQFnCVVkY8Ii aYPoBVaqD261MXshGvX9TX MhgeZdT3Mn CREjkGuiHuZ3h0H6Ol9Wo0 BxrmzwSKA8UJuwCRB7QcW1 NcPgDdH8Z9WbRiu2FKXrbK kmGE2nB1Jf ELMselwbxasmfNU1FGVhDA FwgK38lVWdKAglTb6br4Z3 e688ZIEdBCHgkW98My1kyO ogMTBwdCBU qC2jocufy4sckzxqKoMdFV ZjRDn7KDa1XPDboFjjEwYr YVA0GrK7OBJ4bLDypR2uoR nomomakC4b Oyc+Z99glS2bRHS2XZW4fk xvTVRayaCnUT76JR69F9Ks PjwvdGFibGU+PGRpdiBzdH mdVP9bDpSi g9xdb9EhBTkqF0FcDAMqAS otMub1CHTsKWS2mFB0fU7c ONAjOZxol5P8cNW5Y7Efoy Zyxq4or4vn UIJqCXvsZ89sgEOtn1R9MV JufKK1WCOjnGrkNyQvcN51 Oyc+TVKjxFzpp2OcKnfxb9 jey3vkdQy7 DiUzBJNotaGutQxaVOT8e7 TtTx16U53jDBvtAIGgMDMu VICyHLJqaRnmsb1qcD4dHr 8+PGNvbCB3 xXF8sC4lDCQuDfV3EJjmH4 34TyBrnBFaMfios6dqy2pt oLm5RgKsERPbseFlrLroZC R5d5TzBi39 A40hTFzkLNBbPRUsTXNaFX PuyFzlvv7hnI2eNh5+PC9j v4hxyi47lL27gNO+PHRkIH X7vAzmNMvi QWIkbJ3jAXwzUkP4RTCuPz PviC58zJRrRIjnBv6vdSgm qVzgRW0yLXMtirfff884Xd Gls7ohWGUt gLDiJBwdXJN0J98fd1J1FZ OkMHCeYWE9sJJ2xD4yvUkm bjogbGVmdDsgdmVydGljYW ybIVjjK539 IHRvcDsnPlBhdGllbnQgTm XhRVc1C5OeFfj7YMOvuLag NA4uqBQpTFdwSv9ypBvvnL czMQ0bFTAe nozrn787InYsn0tzBNIsgU MkRRbsGFD2F99os2Q0STCd RMZoASR2eCM5nJ1cmWldfc ogbGVmdDsg xqMapBkkMXigZPpyK055HG RvcDsnPkJpcnRoIERhdGU6 IP16UT77qPLwr8R6dRB4V8 BhZGRpbmct nnagxQA5ATBeMTSqaH03Yc 4nmHvpOa8tTQSlTZM5OPQn rHBuD9IvlE0hGdClIUGaZJ XqM8LvfTPx FAkdU169CQpdNmE0EJWhqk ZkI2WbIOWuxMhfDxA6z7T5 Fh5KM0G1SI31AG33aTOoj2 A4cDN4D0Oj HJXuveyphbhdvKA0YDQtVK BecS67Be0hjFjqLj7nLKHj RQO6DTYatGDsL8DyfM2aBw AjMDAwMDAw W6VljRFyZLuqN811NFkhEq O7MZDanmTfB7UkYEKhvAnr YyY0y5Q2Ul5ZXGo9ZV32GX 02gSQwk4L3 zOP5Q3FdWINxslwkliguxI G7IHBjXSXjhH87Dq3fzOlh Wp4sZEQzFYS9GYCdhARjC4 UapA2pLsCp POZnVQEzL5MnfBFgYHsyF7 45HQaqKvW6IBLamqEjG0Bb EBHhqSgfWrK5i3I0Pi4HZK SzXO23FMD1 rYM6EJ54EF72E1RrIhazrZ FibGU+PHRhYmxlIHdpZHRo KXbeGDKeZkRjpQxlOY3zPw 9yZGVyLWNv pGgigSIbGdMht6dzBOFkJJ kdWK6kyGsbS7XheTD3AAIc m4p6Dj28D02pT8QydZR+PG YocAJ0uCS8 lA2tKeSaYeL1GTqzC672Yu MpyBHdSaene8smf7xaeFt8 TdZ7LYPsgfVqlImpOVG5a1 AaPe37Y48k IHdpZHRoPSIxNSUiIHZhbG wxvz7ubX2pMu8+PGNvbCB3 yQI7nL1iJnTaVxF2NLppA1 49InRvcCIv Kgbii0kot6peqFc3UoIoPR AqiwDqkCdfCMH2l5DmXm50 V2DkgRxuv5FmKpl4fa33bQ Tey7V4bPD8 T3EpZGWbmdtnhSKdzItyLP 4aVESftousBKMapS1rHGRt O2x2WmKpGrF0EYgfW8Fssm N6VNPcpVVh EDmiFDR5H32sr8G5VLHhOV LgVSI5kYS1yO4pkSueqveg bGVmdDsgdmVydGljYWwtYW mgN253WVVe sHvrLSJyvO1iHMLrmVPaxT lrGN1fTPOdzmatYeIWZOKZ HJMOO1kBFeGJTM2CXxzepR Q+PHRkIHN0 iGlgVHfhXBCvuE2hURRnR6 o1LiWyZjS5JAtvV5IzOZMp phbtJb11hN6vEcBrQyM5NJ tlG6LrclO0 TUAkaKArEScyUQG3Y86ex6 A9NNAlBXMeONE5iMX6lK6q bGlnbjogbGVmdDsgdmVydG ljYWwtYWxp F436DXCdlKgsUlR0BgL4Uz L3PGO3F9ToPus8MHPhuWix QT5liRYiJZjaMr3znKoedT gfSX5tCNHl umquMAOsdE1eQOChsVXfgN cwNF8kNVAwayxpy196IvEi UAS7JYHrmQOiH8LlfR0xYk AjMDAwMDAw L2RfdXHkTFziY029QRxsQd L1HYFavbMoK2YdFIZtoXzo NuR5b6H7Yw6kVDSPXHUcxe wvdGQ+PHRk YWC4jJsqCVxvLOBgnM6eRW EyT7e7SnWeQvJ8XEaxJ9Hc STQakpbgDw69qL4iQvJdBr D0BVuqD9Am ukT7TWSxcWUkPYekGCV2Q4 0wp1R3LNUcJHVlQCW3jZE9 hZ7vnCgkcoxztDNdcUlncy VydGljYWwt JYxuC534PZKsbNtqXz9tfH S5Z0MoMim3SXLaxKwvRK5z pJBsYDmtXq9foWvywMaiNR 4wNTBpbjtw CEKbuH8dKNMohHUkkAxyGL 6hSGIsgywzd001UqUaTQH5 WCUeoRJtZ5IdnJ6yZfStWX UrAODkO5Vc nNMmWRhmQ871EXqwTkT5FI RvezHuV3KsISDmdNyfQpL7 m2I3Qu3YTOKpELLdfHTtFq A0G7QlAlmm dHI+IE18QTFaJE61sCJmnP Xdm0fxvHw7ObPgNGQoKKO2 bBjyOHbkv5ZtANMxV62eiV Ewo1D1FVEg rLqddIUfWpVwrDR2qK6cXV fbdasma9ekylpqCrjww4nc zl25uW41S10xMXptPDSqZO IzMCUiIHZh jOsvrz4hvO5yZq0+PGNvbC X5aWM2iC5aHrJnDaT3OJwk O477ReWbhGMkMwrzj5jud3 aftQf7NhQl KRZjumDbaZohNBE5b1XtZu 13C28tBGzhAKFvQONjBTLu DPKqxHebja9gcF0wEh6+PC 6dp1sxsb05 yV47oWA+UDQwOEV6xFpnQR ymXANerK9iWTbyGvS6FZNm JuGukV78eTGsEPlkXc8yuN dvaBnlJT4x ZKHvftdek999RgElc6mrRF VnsJWnCSmgIXJ6T58hj6S5 OCUhDONfWNG1lOC7pY1htM lnbjogbGVm dDsgdmVydGljYWwtYWxpZ2 66VUUltFsiQeRhcOTjB5rn xrXUOS0lKatioMO+PHRkIH Y6fHluNCic QXBjvZ2iZNGqM3b7MvTcTm Z5CQbtS9RfmvF2CKFbcUEj VHMdiIXZbS2ipbube0thct ogIzAwMDAw YGj8TIn6SDVgiEuzIfAaJO Z7KhN6CTW2iCLonM8bgPoy xqwwwR4hNbe+RklOOjwvdG Q+PHRkIHN0 cWoqFZugUUEjaF1rYBMxV2 o8NyDkZhC9FVdsR8TmbfA2 SGEnoCKnFMFhhHTYtE1djq cqq8lwucnm JaMeXJDxHCy7JGs7ZWQlfC wpNpUjRWN4UbR8YKW0vYXe eE5liOhfxkldsP3gKlk+TV JOOjwvdGQ+ HAHtLFP4tHaxIAjwFFZquV 5wPOVsH8d6LtCnIbD6GWyt C4PsunL8NDHabIXhWZRmmB LSzG4ktnaf g5wirtijHnPkSEZqQPr9HO v9WROimHysOcEqCJR6VoX4 BYO8pYRrpU3zjZhbtbgzxH 9wOyc+UGF5 ZTJ9UI56LI19J2KwJaeqtM FibGU+PHRhYmxlIHdpZHRo PZwiTZGsUkNynQcdIM5eYv 9yZGVyLWNv bGxh (more content not included)... Normal [facility] Consent for Procedure/Surger yon 11-01-2021 Consent for Procedure/Surgery [id number]:127 Normal [facility] Patient Educationon 11-01-19 22 Patient Education [...] these instructions at home: Medicines ? Take ddsb-lup-pydxxjm and prescription medicines only as told by [...] 01/30/2006 Document Revised: 06/25/2018 Document Reviewed: 10/09/2017 [employer] Patient Education ? 2019 [employer]. Neel Akhtar [facility] Urology Office/Clinic Noteon 10-31-2021 Urology Office/Clinic Note [...] Contact Information JULIAN PIERRE, Mart Mcbride, URL [address] [place] [phone] Additional Instructions: Patient Education Vasectomy, Care After I, Rafaela Madrigal_, personally scribed for Dr. Man on 10/31/2021 11:28:34. . Documentation recorded by the scribe, Rafaela Madrigal, accurately reflects the services(s) I performed and [...] SARS-CoV-2 (COVID-19) Ad26 vaccine 11/25/2020 Recorded Normal [facility] Comment on above: Result Comment: Elec tronically Signed By: Mart MAN MD\.br\Date and Time Signed: 10/31/21 12:06 EDT\.br\Electronically Co-Signed By: Rafaela Madrigal MA\.br\Date and Time Co-Signed: 10/31/21 11:29 EDT Pre-Authorization for Medica l Treatmenton 10-15-2021 Pre-Authorization for Medical Treatment [id number] 0CD:127 Normal [facility] Ambulatory Visit Summaryon 0 10-10-2021 Ambulatory Visit Summary MELLO VICKERS :1990 Visit Date:10/10/2021 Ambulatory Visit Instructions Your [...] RADHA Mckeon When: Why: schedule vasectomy Where: [facility] [place] [id number]- Medications What How Much When Why Instructions [...] these instructions at home: Medicines ? Take fgdp-gwl-npdcqer and prescription medicines only as told by [...] we (more content not included)... Normal Akhtar [facility] Patient Educationon 10-11-19 Patient Education Urology Vasectomy, [...] these instructions at home: Medicines ? Take szhg-zea-iscacsy and prescription medicines only as told by [...] 01/30/2006 Document Revised: 06/25/2018 Document Reviewed: 10/09/2017 [employer] Patient Education ? 2019 [employer]. [facility] CNOVon 08-26-2020 CNOV Office Visit (ANDRBE ) MELLO VICKERS ([id number]) 1990 M Date Time Provider Department 08/26/20 8:00 AM ANDROLOGY STUDIO PRODUCER ANDSUPRIYA During your visit today, we recorded the following information about you: Malachi Marte Tech 08/26/2020 9:36 AM Signed Semen wash for IUI. Malachi Marte Referring Provider: SELF [200] Allergies As of Date: 08/26/2020 (Not on File) Date Reviewed: Never Reviewed Primary Visit Diagnosis:Procreative management [Z31.9] Problem List As Of Date: 08/26/2020 (None) Encounter Status:Closed by AWAIS OCONNOR on 08/26/20 Normal [facility] Vital Signs Date Time Vital Sign Value Performing Clinician Facility 04-21-2024 13:45-0400 Body height 185.42 cm [facility] 04-21-2024 13:45-0400 Body mass index (BMI) [Ratio] 40 kg/m2 [facility] 04-21-2024 13:45-0400 Body weight 137.6 kg [facility] 04-21-2024 13:45-0400 Diastolic blood pressure 86 mm[Hg] [facility] 04-21-2024 13:45-0400 Heart rate 79 /min [facility] 04-21-2024 13:45-0400 Systolic blood pressure 115 mm[Hg] [facility] 03-09-2023 10:15-0400 Body height 185.42 cm Sadaf Nath Other [facility] [employer] Other 03-09-2023 10:15-0400 Body mass index (BMI) [Ratio] 42.48 kg/m2 Sadaf Nath Other [facility] Other 03-09-2023 10:15-0400 Body weight 146.06 kg Sadaf Nath Other [facility] Other 03-09-2023 10:15-0400 Diastolic blood pressure 89 mm[Hg] Sadaf Nath Other [facility] Other 03-09-2023 10:15-0400 Systolic blood pressure 136 mm[Hg] Sadaf Nath Other [facility] Other 02-03-2023 11:30-0400 Body height 185.42 cm Sadaf Nath Other [facility] Other 02-03-2023 11:30-0400 Body mass index (BMI) [Ratio] 42.87 kg/m2 Sadaf Nath Other [facility] Other 02-03-2023 11:30-0400 Body weight 147.42 kg Sadaf Nath Other [facility] Other 02-03-2023 11:30-0400 Diastolic blood pressure 86 mm[Hg] Sadaf Nath Other [facility] Other 02-03-2023 11:30-0400 Systolic blood pressure 119 mm[Hg] Sadaf Nath Other [facility] Other 01-19-2023 13:00-0400 Body height 185.42 cm Sadaf Nath Other [facility] Other 01-19-2023 13:00-0400 Body mass index (BMI) [Ratio] 42.87 kg/m2 Sadaf Nath Other [facility] Other 01-19-2023 13:00-0400 Body weight 147.42 kg Sadaf Nath Other [facility] Other 01-19-2023 13:00-0400 Diastolic blood pressure 93 mm[Hg] Sadaf Nath Other [facility] Other 01-19-2023 13:00-0400 Systolic blood pressure 141 mm[Hg] Sadaf Nath Other [facility] Other 10-31-2021 10:42-0400 Blood Pressure Location Mart RICE [facility] 10-31-2021 10:42-0400 Diastolic blood pressure 93 mm[Hg] Mart RICE [facility] 10-31-2021 10:42-0400 Heart rate 75 /min Mart MAN [facility] 10-31-2021 10:42-0400 Systolic blood pressure 142 mm[Hg] Mart MAN [facility] Encounters Encounter Date Encounter Type Care Provider Facility Start: 07-11-2024 End: 07-11-2024 Telephone encounter Evy Dominique MD Work Phone: [facility] Start: 04-21-2024 End: 04-21-[address] [facility] Work Phone: Start: 04-21-2024 End: 04-21-2024 Patient encounter procedure [facility] Work Phone: Start: 04-18-2024 End: 04-19-2024 Refill Dora Hunter LPN [facility] Comment on above: Secondary hypopituit arism (CMS/HCC) Start: 03-31-2024 Non-patient / Non-visit [facility] Work Phone: Start: 01-21-[address] [facility] Start: 08-24-2023 End: 08-24-2023 ambulatory Sadaf Nath Other [facility] Other Start: 08-24-2023 Telephone encounter Sadaf Nath [facility] Start: 07-22-2023 End: 07-22-2023 ambulatory Sadaf Nath Other [facility] Other Start: 07-22-2023 Telephone encounter Sadaf Nath [facility] Start: 05-29-2023 End: 05-29-2023 ambulatory Sadaf Nath Other [facility] Other Start: 05-29-2023 Telephone encounter Sadaf Nath [facility] Start: 05-21-2023 End: 05-21-2023 ambulatory Sadaf Jcarlos Other [facility] Other Start: 05-21-2023 Telephone encounter Sadaf Nath [facility] Start: 04-28-2023 End: 04-28-2023 ambulatory Sadaf Jcarlos Other [facility] Other Start: 04-28-2023 Telephone encounter Sadaf Nath [facility] Start: 04-27-2023 End: 04-27-2023 ambulatory Sadaf Jcarlos Other [facility] Other Start: 04-27-2023 Telephone encounter Sadaf Nath [facility] Start: 03-09-2023 End: 03-09-2023 ambulatory Sadaf Jcarlos Other [facility] Other Start: 03-09-2023 Office outpatient vi sit 15 minutes Sadaf Nath [facility] Start: 03-02-2023 End: 03-02-2023 ambulatory Sadaf Jcarlos Other [facility] Other Start: 03-02-2023 Telephone encounter Sadaf Nath [facility] Start: 02-03-2023 End: 02-03-2023 ambulatory Sadaf Jcarlos Other [facility] Other Start: 02-03-2023 Office outpatient vi sit 15 minutes Sadaf Nath [facility] Start: 02-03-2023 Telephone encounter Sadaf Nath [facility] Start: 01-19-2023 End: 01-19-2023 ambulatory Sadaf Jcarlos Other [facility] Other Start: 01-19-2023 Encounter for genera l adult medical examination without abnormal findings Sadaf Jcarlos [facility] Start: 01-19-2023 Periodic preventive med est patient 18-39 yrs Sadaf Jcarlos [facility] Start: 01-25-2022 End: 01-25-2022 Patient encounter procedure MD Sadaf Nath Work Phone: [facility] [employer] Start: 11-18-2021 End: 11-18-2021 Patient encounter procedure Mart MAN [facility] [place] Start: 10-31-2021 End: 10-31-2021 Lab Drop off Mart MAN [facility] Start: 10-31-2021 End: 10-31-2021 Patient encounter procedure Mart MAN [facility] [place] Start: 08-22-2021 Adult health examination Romelia Nath Other [facility] Other Start: 08-22-2021 Encounter for genera l adult medical examination without abnormal findings Sadaf Nath Other [facility] Other Start: 02-05-2021 End: 05-01-[address] LICEA [facility] Facility:H1 Procedures Date Procedure Procedure Detail Performing Clinician Start: 11-18-2021 H/O: vasectomy Mart MAN Start: 10-31-2021 Vasectomy Mart Camacho Start: 12-10-2020 Open reduction of fr acture of ankle with internal fixation Mart MAN Contraception care education Sadaf Naht Other Tonsillectomy Mart MAN Plan of Treatment Date Care Activity Detail Author Start: 08-01-2024 End: 08-01-2024 Patient encounter procedure 08/01/2024 11:10 AM EST Office Visit [facility] [address] [place] [address] Evy Dominique MD [address] [place] [address] [facility] Start: 03-27-2024 Influenza vaccination Influenza Vaccine (#1) [facility] Immunizations Immunization Date Immunization Notes Care Provider Fa cility 11-25-2020 SARS-CoV-2 (COVID-19 ) Ad26 vaccine, recombinant Mart RICE [facility] 05-31-2009 novel [id number], preservative-free, injectable Evy Dominique MD Work Phone: [facility] Payers Date Payer Category Payer [facility] BCBS Memb er Subscriber Plan / Payer (Effective 2021-Present) Name: Mello Vickers Relation to Subscriber: Self Name: Mello Vickers Payer ID: Not on file Type: Not on file Address: [address] [place] [id number] 2021 Unknown BCBS BCBS [id number] 2021-Present [phone] [address] [place] [id number] 1990 Unknown [id number] 1959 Unknown [id number] Self-pay Self Pay [id number] Unknown [id number] Social History Date Type Detail Facility Tobacco Unknown if ever smoked [facility] [employer] Comment on above: denies Start: 04-20-2023 End: 06-29-2024 Sex Assigned At Male [facility] [employer] Start: 1990 Sex Assigned At Male [facility] Start: 04-20-2023 Tobacco smoking stat us NHIS Never smoked tobacco [facility] Start: 04-20-2023 Tobacco use and exposure Smokeless tobacco non-user [facility] Start: 04-20-2023 End: 06-29-2024 Alcoholic beverage intake Lifetime non-drinker (finding) [facility] Start: 04-20-2023 End: 06-29-2024 History of Social function [facility] Start: 04-18-2023 Alcohol Comment Caffeine intake: non e [facility] Start: 1990 Sex assigned at Not on file [facility] Medical Equipment Procedure Code Equipment Code Equipment [...] FDA Start: 12-10-2020 Clinical Notes 08-26-2020 to 07-11-2024 Telephone Encounter - Miguel Patino - 07/11/2024 10:12 AM ESTTelephone Encounter - Miguel Patino - 07/11/2024 10:12 AM EST Note Date & Type Note Facility 07-11-2024 Telephone encounter Note Form atting of this note might be different from the original. Please refill [facility] to [facility] please and thank you! [facility] 07-11-2024 Miscellaneous Notes Formattin g of this note might be different from the original. Please refill [facility] to [facility] please and thank you! documented in this encounter [facility] 08-24-2023 Evaluation note Encounter Date Diagnosis Assessment Notes Jul, Adult ADHD (ICD-10 - F90.9) [facility] Other 12-27-2023 Evaluation note* Encounter Date Diagnosis Assessment Notes Treatment Notes Treatment Clinical Notes Jun, Adult ADHD (ICD-10 - F90.9) [facility] 11-03-2023 Evaluation note* Encounter Date Diagnosis Assessment Notes Treatment Notes Treatment Clinical Notes May, Adult ADHD (ICD-10 - F90.9) [facility] 10-26-2023 Evaluation note* Encounter Date Diagnosis Assessment Notes Treatment Notes Treatment Clinical Notes Apr, Adult ADHD (ICD-10 - F90.9) [facility] 10-03-2023 Evaluation note* Encounter Date Diagnosis Assessment Notes Treatment Notes Treatment Clinical Notes Apr, Adult ADHD (ICD-10 - F90.9) [facility] 10-02-2023 Evaluation note* Encounter Date Diagnosis Assessment Notes Treatment Notes Treatment Clinical Notes Apr, Adult ADHD (ICD-10 - F90.9) [facility] 08-14-2023 Evaluation note* Encounter Date Diagnosis Assessment Notes Treatment Notes Treatment Clinical Notes Feb, Adult ADHD (ICD-10 - F90.9) Pt denies adverse side effects. He filled the 30mg dose last week. agrees to increase to 50mg in 2-3 weeks and monitor results. He had a lot of positive effects initially and agrees to continue same med. [facility] Other 07-11-2023 Evaluation note* Encounter Date Diagnosis [...] immediately. Understands it is a controlled substance. [facility] 06-26-2023 Evaluation note* Encounter Date Diagnosis [...] nut allergy (ICD-10 - Z91.018) Pt requests medical assistant prn referral for complete allergy testing mainly for his daughter's potential inherited allergies. [facility] Other 04-25-2022 Evaluation + Plan note Diagnostic Tests Pending * Semen Analysis Post Vasectomy 11/18/21 * Semen Analysis Post Vasectomy 11/19/21 [facility] 04-25-2022 Hospital Discharge instructions Patient Education 11/18/2021 [...] 06/30/2017 Document Revised: 11/04/2019 Document Reviewed: 06/30/2017 [employer] Patient Education 2019 [employer] Follow Up Care 10/10/2021 10:51:54 With:JULIAN PIERRE, Mart Mcbride, URL Address: [address] [place], [place] [id number]- When: only if needed [facility] 04-07-2022 Hospital Discharge instructions Patient Education [...] Follow these instructions at home: Medicines Take [id number] and prescription medicines only as told by [...] 01/30/2006 Document Revised: 06/25/2018 Document Reviewed: 10/09/2017 [employer] Patient Education 2020 [employer]. Follow Up Care 10/11/2021 13:55:26 With:JULIAN PIERRE, Mart Mcbride, URL Address: [address] [place] [id number] [phone] When: Unknown [facility] 03-17-2022 NoteChief Complaint Pt is here [...] Information JULIAN PIERRE, Mart Mcbride, URL [address] [place] [id number]- Additional Instructions: schedule vasectomy Patient Education Vasectomy, [...] mg= 2 cap(s), (more content not included)... [facility]Result Comment: Electronically Signed By: Mart MAN MD\.br\Date and Time Signed: 10/10/21 10:33 EDT\.br\Electronically Co-Signed By: Daiana Kong MA\.br\Date and Time Co- Signed: 10/10/21 10:31 [id number] History general Narrative - Reported* Type Description Date Surgical History T & A 1997 Surgical History Right leg surgery, broke bone [facility] Other 05-01-2021 History general Narrative - Reported* Type Description Date Surgical History T & A 1997 Surgical History Right leg surgery, broke bone Hospitalization History SEE SURGICAL HX [facility] Other 01-31-2021 NoteHNO ID: [id number] Author: aMlachi Marte (Tech) Service: ? Author Type: Receptionist Doctor'S Office Type: Progress Notes Filed: 08/26/2020 9:36 AM Note Text: Semen wash for IUI. [facility] note Future Appointments Appointment Date:11/18/2021 09:45:00 AM Scheduled Provider:Mart MAN MD Location:[facility] Appointment Type:URO Office Visit [facility] Evaluation noteNo assessment information available [facility] Work Phone: Evaluation noteNo InformationNort [facility] Other Evaluation note* Diagnosis Secondary hypopituitarism (CMS/HCC) Panhypopituitarism [facility] Diagnosis Secondary hypopituitarism (CMS/HCC) Panhypopituitarism documented in this encounter [facility] general N[facility]ative - [facility] Other Hospital course Narrative No data available for this section [facility] Hospital Discharge instructions No data available for this section [facility] Summary Purpose Family History No Family History Records FoundNo Family History Records FoundNo Family History Records FoundNo Family History Records Found Advance Directives Advance Directive Response Recorded Date/ Time Advance Directives No January 25 9:48am Chief Complaint and Reason for Visit Chief Complaint Z30.8 Chief Complaint wellness Reason for Referral Reason [place] office - in terested in testing - tree nut allergy, but would like this verified to see what his 1 yo daughter is possibly allergic to Diagnosis 1 Tree nut allergy (Z9 1.018) Referral Organization [facility] Referring Provider First Name Sadaf Referring Provider Last Name Jcarlos Referring Provider Specialty Family Medi cine Referred Organization [facility] Referred Provider Adrian Armstrong Referred Address ,[place], [place],[address] Referred Provider Specialty Allergy/Immu nology Referral Priority Routine Additional Source Comments (unrecognized sect ion and content) No Status Records FoundNo Status Records FoundNo Status Records FoundNo Status Records Found INFORMATION SOURCE (unrecogn ized section and content) DATE CREATED AUTHOR 07/03/2021 Henry shaikh DATE CREATED AUTHOR AUTHOR'S ORGANIZ ATION 08/22/2021 [facility] DATE CREATED AUTHOR AUTHOR'S ORGANIZ ATION 02/04/2022 Akhtar Long [facility] DATE CREATED AUTHOR AUTHOR'S ORGANIZ ATION 02/11/2022 [facility] Care Teams (unrecognized sec tion and content) Team Status: Inactive Member Role Status Dates Sadaf Nath MD Primary Care Provider Active Mart Man MD Attending Provider Active Team Status: Active Member Role Status Dates Sadaf Nath MD Primary Care Provider Active Team Status: Active Member Role Status Dates Sadaf Nath MD Primary Care Provider Active Start: March 31, 2024 Evy Dominique MD Attending Provider Active Sta rt: March 31, 2024 Team Status: Inactive Member Role Status Dates Sadaf Nath MD Primary Care Provide r, Attending Provider Active Start: April 21, 2024 End: April 21, 2024 Hospital Unit Clerk Relationship Specialty Start Date End Date Sadaf Nath MD [address] [place] [address] PCP - General Family Medicine 04/20/23 Hospital Unit Clerk Relationship Specialty Start Date End Date Sadaf Nath MD [address] [place] [address] PCP - General Family Medicine 04/20/23 Goals (unrecognized section and content) Goals may be documented in a n alternate section REASON FOR VISIT (unrecogniz ed section and content) Reason Onset Date Comments Med Refill 04/18/2024 FOR RECORDS PERTAINING TO PATIENTS WHO ARE [...] BE BASED ON THE PRIMARY CLINICAL RECORDS. [facility] & Information [facility]. provides no warranty or guarantee of the accuracy or completeness of information in this document.
--- NOTE | 2024-07-18 08:36 | MR_ITS ---
[facility] [place] [id number] Patient Name: GUADALUPE ARCHER MRN: [id number] date: 1990 Sex: M Assigned Patient Location: MRI Current Patient Location: MRI Accession/Order Number: [id number] Exam Date: 07/18/2024 08:55 Report Date: 07/18/2024 10:33 At the request of: LANCE RUIZ Procedure: MR head/brain wo/w con MR head/brain wo/w con, 07/18/2024 8:55 AM EST INDICATION: Hyperprolactinemia, Galactorrhea, Hypertrophy Breast COMPARISON: Prior MRI of the brain dated 02/10/2024 TECHNIQUE: Multiplanar, multisequential MRI images of brain were obtained without and with injection of contrast. FINDINGS: The cerebral sulci as well as ventricular system are appropriate for age. There is no restricted diffusion. There is a 6 x 4 mm left pituitary microadenoma is stable in size and configuration. The pituitary stalk is in midline. No extension to the cavernous sinus is noted. There is no intracranial mass, mass effect, midline shift, intra or extra-axial fluid collection or large hemorrhage. No abnormal enhancing lesion is noted. Normal flow-void in the intracranial vessels is noted. The visualized portions of orbits, mastoid air cells as well as paranasal sinuses are unremarkable. MR/MR head/brain wo/w con IMPRESSION: No acute intracranial process is noted. No significant interval change in size and configuration of the left pituitary microadenoma. Electronically authenticated by: BOGDAN QUINONES Date: 07/18/2024 10:33
[2024-07-18 08:41] LABS: Hemoglobin 16.1 g/dL (14.0-18.0)
[2024-07-18 09:39] LABS: Prostate Specific Antigen Scrn 0.37 ng/mL (<=4.00)
[2024-07-19 04:07] LABS: Prolactin 89.6 ng/mL (3.9-22.7); Testosterone 111 ng/dL (264-916)
== END 2024-07-18 08:18 | disposition home or self-care (01) ==
LOC: MRI 08:18
PROVIDERS: PCP Family Medicine; Visit Provider Internal Medicine
DX: N62 Hypertrophy of breast (principal); N64.3 Galactorrhea not associated with childbirth
CPT/HCPCS: 36415; 70553; 84146; 84403; 85018; A9575; G0103